=== PATIENT | male | born 1970 ===

== ENCOUNTER 2017-02-19 09:57 | Inpatient (IN) | payer MEDICAID, OTHER ==
[2017-02-19 10:04] VITALS: BMI 27.4
[2017-02-19] MEDS ORDERED: Sodium Chloride 0.9% 1,000 ML IV STA (10:31)
--- NOTE | 2017-02-19 11:00 | ED PDOC ---
HPI:Nausea, Vomiting, Diarrhea Time Seen by Provider: 02/19/17 10:02 Chief Complaint (Nursing): GI Problem Chief Complaint (Provider): Vomiting History Per: Patient History/Exam Limitations: no limitations Onset/Duration Of Symptoms: Hrs (since last night) Current Symptoms Are (Timing): Still Present Have you had recent travel within the past 21 days to any of the following countries: [place], [place], [place] or [place]?: No Context: Food Quality Of Discomfort: "Pain" Associated Symptoms: Diarrhea (mild). denies: Chest Pain Additional Complaint(s): 46 year old male presents to ED with complaints of vomiting since last night and has a past medical history of DM and HTN. States that ever since he had dinner he has been persistently vomiting. (+) abdominal pain, dizziness, mild diarrhea, and diffuse body aches. (-) chest pain or SOB. Patient also notes a rash present on his left lower extremity x1 month, itchy, not painful. No numbness, tingles. Weakness all over. PCP: EMILY Past Medical History Reviewed: Historical Data, Nursing Documentation, Vital Signs Vital Signs: Last Vital Signs Temp 98.2 F 02/19/17 10:07 Pulse 107 H 02/19/17 10:07 Resp 18 02/19/17 10:07 BP 145/91 H 02/19/17 10:07 Pulse Ox 97 02/19/17 10:07 - Medical History PMH: Diabetes, HTN Denies: Chronic Kidney Disease - Family History Family History: States: Diabetes, Hypertension - Living Arrangements Living Arrangements: With Family - Social History Current smoker - smoking cessation education provided: No Ex-Smoker (has not smoked in the last 12 months): No Alcohol: Occasional - Immunization History Hx Tetanus Toxoid Vaccination: Yes (8 months ago) - Home Medications Home Medications: Ambulatory Orders Medication Instructions Recorded Gabapentin [Neurontin] 300 mg PO BID 10/17/16 amLODIPine [Norvasc] 10 mg PO DAILY 10/17/16 GlipiZIDE [Glucotrol] 10 mg PO BID #60 tab 10/18/16 Lisinopril [Prinivil] 5 mg PO DAILY #30 tablet 10/18/16 Clotrimazole/Betamethasone 15 gm EXT DAILY #30 tube 02/21/17 [Lotrisone] GlipiZIDE SR [Glucotrol XL] 5 mg PO BRK #30 tab 02/21/17 Pioglitazone [Actos] 30 mg PO DAILY #30 tab 02/21/17 SITagliptin [Januvia] 100 mg PO DAILY #30 tab 02/21/17 metFORMIN ER [glucoPHAGE XR] 1,000 mg PO BID #60 ter 02/21/17 - Allergies Allergies/Adverse Reactions: Allergies Allergy/AdvReac Type Severity Reaction Status Date / Time No Known Allergies Allergy Verified 05/13/16 16:12 Review of Systems ROS Statement: Except As Marked, All Systems Reviewed And Found Negative Constitutional: Positive for: Other (diffuse body aches) Cardiovascular: Negative for: Chest Pain Respiratory: Negative for: Shortness of Breath Gastrointestinal: Positive for: Vomiting, Abdominal Pain, Diarrhea (mild) Skin: Positive for: Rash (Rash on left lower extremity) Neurological: Positive for: Dizziness Physical Exam - Reviewed Nursing Documentation Reviewed: Yes Vital Signs Reviewed: Yes - Physical Exam Appears: Positive for: Non-toxic, No Acute Distress Skin: Positive for: Normal Color, Warm, Dry, Rash (on left medial calf: 5 cm diameter area with dried skin, erythema, and mild blanching. No fluctuance, induration, or discharge) Eye Exam: Positive for: Normal appearance, EOMI, PERRL Neck: Positive for: Normal Cardiovascular/Chest: Positive for: Regular Rate, Rhythm Respiratory: Positive for: Normal Breath Sounds. Negative for: Respiratory Distress Gastrointestinal/Abdominal: Positive for: Soft, Tenderness (mild epigastric tenderness) Back: Positive for: Other (diffuse back tenderness) Extremity: Positive for: Normal ROM, Other (scabs on bilateral knees). Negative for: Calf Tenderness, Deformity Neurologic/Psych: Positive for: Alert, Oriented. Negative for: Motor/Sensory Deficits - Laboratory Results Result Diagrams: 02/20/17 06:30 02/20/17 06:30 - ECG O2 Sat by Pulse Oximetry: 97 (RA) Pulse Ox Interpretation: Normal Medical Decision Making Medical Decision Makin Initial impression: evaluation for vomiting and diarrhea Initial plan: * EKG * Labs * Lipase * Trop I * Bentyl 10mg PO * NS IV * Zofran Inj 4mg IV * Re-eval Scribe Attestation: Documented by Kristyn Thompson acting as a scribe for Randy Dooley MD. Scribe Attestation: All medical record entries made by the Scribe were at my direction and personally dictated by me. I have reviewed the chart and agree that the record accurately reflects my personal performance of the history, physical exam, medical decision making, and the department course for this patient. I have also personally directed, reviewed, and agree with the discharge instructions and disposition. Disposition - Clinical Impression Clinical Impression: Hyperglycemia, Dehydration - Patient ED Disposition Is Patient to be Admitted: Yes - Disposition Disposition Time: 19:30 Condition: STABLE - POA Present On Arrival: Poor Glycemic Control
[2017-02-19 11:28] LABS: BASO % 0.2 % (0.0-2.0); EOS % 0.1 % (0.0-4.0); HEMOGLOBIN 12.9 g/dL (12.0-18.0); LYMPH # 0.6 K/uL (1.0-4.3); LYMPH % 8.4 % (20.0-40.0); MEAN CELL VOLUME 88.1 fl (80.0-94.0); MEAN CORPUSCULAR HEMOGLOBIN 30.2 pg (27.0-31.0); MEAN CORPUSCULAR HGB CONC 34.3 g/dL (33.0-37.0); MEAN PLATELET VOLUME 8.8 fl (7.2-11.7); MONO # 0.4 K/uL (0.0-0.8); MONO % 6.2 % (0.0-10.0); NEUT # 5.7 K/uL (1.8-7.0); NEUT % 85.1 % (50.0-75.0); NRBC % 0.2 % (0.0-0.0); PLATELET COUNT 116 K/uL (130-400); RBC 4.27 Mil/uL (4.40-5.90); WHITE BLOOD COUNT 6.7 K/uL (4.8-10.8)
[2017-02-19 11:39] LABS: ALT/SGPT 119 U/L (21-72); AST/SGOT 140 U/L (17-59); BLOOD UREA NITROGEN 24 mg/dl (9-20); GFR AFRICAN-AMERICAN > 60; GFR NON-AFRICAN AMERICAN > 60; LIPASE 82 U/L (23-300)
[2017-02-19] MEDS ORDERED: Insulin Regular 100 units/ml ONE (12:47)
[2017-02-19] MEDS: Sodium Chloride 0.9% 1,000 ML IV SCH (23:45)
[2017-02-20] MEDS: Insulin Regular 100 units/ml SC SCH ×4 (06:29→23:00)
[2017-02-20 07:32] LABS: BANDS 2 % (0-2); LYMPHOCYTE 7 % (20-50); MONOCYTE 4 % (0-10); NEUTROPHIL 87 % (42-75); TOTAL CELLS COUNTED 100
[2017-02-20 07:33] LABS: PLATELET ESTIMATE SLIGHTLY DECREASED (NORMAL)
[2017-02-20 07:34] LABS: TEARDROP CELLS SLIGHT
[2017-02-20 08:26] LABS: MEAN CELL VOLUME 88.4 fl (80.0-94.0); MEAN CORPUSCULAR HEMOGLOBIN 30.1 pg (27.0-31.0); MEAN CORPUSCULAR HGB CONC 34.1 g/dL (33.0-37.0); RBC 3.98 Mil/uL (4.40-5.90); RED CELL DISTRIBUTION WIDTH 14.1 % (11.5-14.5); WHITE BLOOD COUNT 5.8 K/uL (4.8-10.8)
[2017-02-20 08:35] LABS: ALB/GLOB RATIO 0.9 (1.0-2.1); ALBUMIN 3.2 g/dL (3.5-5.0); ALT/SGPT 103 U/L (21-72); AST/SGOT 104 U/L (17-59); BLOOD UREA NITROGEN 15 mg/dl (9-20); CALCIUM 8.1 mg/dL (8.4-10.2); GFR AFRICAN-AMERICAN > 60; GFR NON-AFRICAN AMERICAN > 60
[2017-02-20] MEDS: Sodium Chloride 0.9% 1,000 ML IV SCH ×2 (08:57→17:22)
[2017-02-20] MEDS: GlipiZIDE 5 mg SR Tab PO SCH (11:12)
[2017-02-21] MEDS: Insulin Regular 100 units/ml SC SCH ×2 (06:39→12:24)
--- NOTE | 2017-02-21 06:57 | CARD ---
APPROVED REPORT EKG Measurement Heart [id number] <Conclusion> Normal sinus rhythm Normal ECG
[2017-02-21] MEDS: GlipiZIDE 5 mg SR Tab PO SCH (08:00)
--- NOTE | 2017-02-21 13:30 | CP.PCM.HP ---
History of Present Illness - History of Present Illness History of Present Illness: This is a 46 y/o male admitted for episodes f vomiting. Noted to have some dehydration He has a hx of uncontrolled DM 2. Past Patient History - Infectious Disease Hx of Infectious Diseases: None - Tetanus Immunizations Tetanus Immunization: Unknown - Past Medical History & Family History Past Medical History?: Yes - Past Social History Smoking Status: Never Smoked - CARDIAC Hx Cardiac Disorders: Yes Hx Hypertension: Yes - PULMONARY Hx Respiratory Disorders: No - NEUROLOGICAL Hx Neurological Disorder: Yes Other/Comment: Diabetic neuropathy BLE - HEENT Hx HEENT Problems: No - RENAL Hx Chronic Kidney Disease: No - ENDOCRINE/METABOLIC Hx Endocrine Disorders: Yes Hx Diabetes Mellitus Type 2: Yes - HEMATOLOGICAL/ONCOLOGICAL Hx Blood Disorders: No - INTEGUMENTARY Hx Dermatological Problems: No - MUSCULOSKELETAL/RHEUMATOLOGICAL Hx Musculoskeletal Disorders: No Hx Falls: Yes - GASTROINTESTINAL Hx Gastrointestinal Disorders: No - GENITOURINARY/GYNECOLOGICAL Hx Genitourinary Disorders: No - PSYCHIATRIC Hx Psychophysiologic Disorder: No Hx Substance Use: No - SURGICAL HISTORY Hx Surgeries: Yes Other/Comment: Right great toe amputation, left wrist surgery - ANESTHESIA Hx Anesthesia: Yes Hx Anesthesia Reactions: No Hx Malignant Hyperthermia: No Meds Allergies/Adverse Reactions: Allergies Allergy/AdvReac Type Severity Reaction Status Date / Time No Known Allergies Allergy Verified 05/13/16 16:12 Results - Vital Signs Recent Vital Signs: Last Vital Signs Temp 98 F 02/21/17 13:00 Pulse 87 02/21/17 13:00 Resp 18 02/21/17 13:00 BP 95/61 L 02/21/17 13:00 Pulse Ox 99 02/21/17 13:00 - Labs Result Diagrams: 02/20/17 06:30 02/20/17 06:30 Labs: Laboratory Results - last 24 hr 02/20/17 02/21/17 02/21/17 21:20 05:31 11:35 POC Glucose (mg/dL) 274 H 282 H 333 H
--- NOTE | 2017-02-21 13:31 | CP.PCM.DIS ---
Provider - Provider Date of Admission: 02/20/17 21:17 Attending physician: Uziel Be MD Hospital Course - Lab Results Lab Results: Most Recent Lab Values WBC 5.8 K/uL (4.8-10.8) 02/20/17 06:30 RBC 3.98 Mil/uL (4.40-5.90) L 02/20/17 06:30 Hgb 12.0 g/dL (12.0-18.0) 02/20/17 06:30 Hct 35.2 % (35.0-51.0) 02/20/17 06:30 MCV 88.4 fl (80.0-94.0) 02/20/17 06:30 MCH 30.1 pg (27.0-31.0) 02/20/17 06:30 MCHC 34.1 g/dL (33.0-37.0) 02/20/17 06:30 RDW 14.1 % (11.5-14.5) 02/20/17 06:30 Plt Count 111 K/uL (130-400) L 02/20/17 06:30 MPV 8.8 fl (7.2-11.7) 02/19/17 11:11 Neut % (Auto) 85.1 % (50.0-75.0) H 02/19/17 11:11 Lymph % (Auto) 8.4 % (20.0-40.0) L 02/19/17 11:11 Dodge % (Auto) 6.2 % (0.0-10.0) 02/19/17 11:11 Eos % (Auto) 0.1 % (0.0-4.0) 02/19/17 11:11 Baso % (Auto) 0.2 % (0.0-2.0) 02/19/17 11:11 Neut # 5.7 K/uL (1.8-7.0) 02/19/17 11:11 Lymph # 0.6 K/uL (1.0-4.3) L 02/19/17 11:11 Dodge # 0.4 K/uL (0.0-0.8) 02/19/17 11:11 Eos # 0.0 K/uL (0.0-0.7) 02/19/17 11:11 Baso # 0.0 K/uL (0.0-0.2) 02/19/17 11:11 Neutrophils % (Manual) 87 % (42-75) H 02/19/17 11:11 Band Neutrophils % 2 % (0-2) 02/19/17 11:11 Lymphocytes % (Manual) 7 % (20-50) L 02/19/17 11:11 Monocytes % (Manual) 4 % (0-10) 02/19/17 11:11 Platelet Estimate Slightly decreased (NORMAL) L 02/19/17 11:11 Tear Drop Cells Slight 02/19/17 11:11 Sodium 131 mmol/l (132-148) L 02/20/17 06:30 Potassium 4.1 MMOL/L (3.6-5.0) 02/20/17 06:30 Chloride 97 mmol/L (98-107) L 02/20/17 06:30 Carbon Dioxide 29 mmol/L (22-30) 02/20/17 06:30 Anion Gap 9 (10-20) L 02/20/17 06:30 BUN 15 mg/dl (9-20) 02/20/17 06:30 Creatinine 0.9 mg/dL (0.8-1.5) 02/20/17 06:30 Est GFR ( Amer) > 60 02/20/17 06:30 Est GFR (Non-Af Amer) > 60 02/20/17 06:30 POC Glucose (mg/dL) 333 mg/dL (65-110) H 02/21/17 11:35 Random Glucose 230 mg/dL (75-110) H 02/20/17 06:30 Calcium 8.1 mg/dL (8.4-10.2) L 02/20/17 06:30 Total Bilirubin 0.8 mg/dl (0.2-1.3) 02/20/17 06:30 AST 104 U/L (17-59) H D 02/20/17 06:30 ALT 103 U/L (21-72) H 02/20/17 06:30 Alkaline Phosphatase 119 U/L (38-126) 02/20/17 06:30 Troponin I < 0.0120 ng/mL (0.00-0.120) 02/19/17 11:11 Total Protein 6.9 G/DL (6.3-8.2) 02/20/17 06:30 Albumin 3.2 g/dL (3.5-5.0) L 02/20/17 06:30 Globulin 3.7 gm/dL (2.2-3.9) 02/20/17 06:30 Albumin/Globulin Ratio 0.9 (1.0-2.1) L 02/20/17 06:30 Lipase 82 U/L (23-300) 02/19/17 11:11 - Hospital Course Hospital Course: This is a 46 y/o male admitted or episodes of vomiting Has a hx of DM 2 uncontrolled and he was noted to be in dehydration. Discharge Plan - Follow Up Plan Condition: STABLE Disposition: HOME/ ROUTINE
[2017-02-21 15:47] VITALS: BP 97/63; PULSE 82; RESP 20; TEMP 97.9
--- NOTE | 2017-02-21 16:31 | US ---
PROCEDURE: Right lower extremity venous duplex Doppler. HISTORY: swelling COMPARISON: None available. TECHNIQUE: Common femoral, superficial femoral, popliteal and posterior tibial veins were evaluated. Flow was assessed with color Doppler, compressibility, assessment of phasic flow and augmentation response. FINDINGS: COMMON FEMORAL VEIN: Unremarkable. SUPERFICIAL FEMORAL VEIN: Unremarkable. POPLITEAL VEIN: Unremarkable. POSTERIOR TIBIAL VEIN: Unremarkable. OTHER FINDINGS: Note made of right sided inguinal lymph nodes IMPRESSION: No evidence of deep venous thrombosis in the right lower extremity.
--- NOTE | 2017-02-22 09:03 | CARD ---
APPROVED REPORT EXAM: Two-dimensional and M-mode echocardiogram with Doppler and color Doppler. Other Information Quality : GoodRhythm : NSR INDICATION Hypertension/HCVD 2D DIMENSIONS IVSd1.11 (0.7-1.1cm)LVDd4.25 (3.9-5.9cm) LVOT Diameter2.17 (1.8-2.4cm)PWd1.03 (0.7-1.1cm) IVSs1.33 (0.8-1.2cm)LVDs3.05 (2.5-4.0cm) FS (%) 28.4 %PWs1.60 (0.8-1.2cm) M-Mode DIMENSIONS Left Atrium (MM)3.53 (2.5-4.0cm)IVSd1.21 (0.7-1.1cm) Aortic Root3.59 (2.2-3.7cm)LVDd4.56 (4.0-5.6cm) Aortic Cusp Exc.2.09 (1.5-2.0cm)PWd1.00 (0.7-1.1cm) IVSs1.47 cmFS (%) 32 % LVDs3.12 (2.0-3.8cm)PWs1.50 cm Mitral Valve MV E Pvqlgaim34.2cm/sMV DECEL [id number] A Kwbivahl51.5cm/s MV DQC66qlY/A ratio0.6MVA (PHT)4.58cm2 TDI Lateral E' Peak V9.29cm/sMedial E' Peak V5.21cm/sE/Lateral E'3.8 E/Medial E'6.8 Pulmonary Valve PV Peak Qvkqzcgi81.0cm/s Tricuspid Valve TR Peak Ajodgqel533dx/sRAP FQPJGGFU00bcGtUV Peak Gr.22mmHg YUFZ59gzUq LEFT VENTRICLE The left ventricle is normal size. There is normal left ventricular wall thickness. The left ventricular function is normal. The left ventricular ejection fraction is within the normal range. The Ejection Fraction is 60-65%. There is normal LV segmental wall motion. The left ventricular diastolic function is normal. No left ventricle thrombus noted on this study. There is no mass noted in the left ventricle. RIGHT VENTRICLE The right ventricle is normal size. There is normal right ventricular wall thickness. The right ventricular systolic function is normal. ATRIA The left atrium size is normal. The right atrium size is normal. The interatrial septum is intact with no evidence for an atrial septal defect. AORTIC VALVE The aortic valve is normal in structure and function. No aortic regurgitation is present. There is no aortic valvular stenosis. There is no aortic valvular vegetation. MITRAL VALVE The mitral valve is normal in structure and function. There is no evidence of mitral valve prolapse. There is no mitral valve stenosis. There is no mitral valve regurgitation noted. TRICUSPID VALVE The tricuspid valve is normal in structure and function. There is no tricuspid valve regurgitation noted. There is no tricuspid valve prolapse or vegetation. There is no tricuspid valve stenosis. PULMONIC VALVE The pulmonary valve is normal in structure and function. There is no pulmonic valvular regurgitation. There is no pulmonic valvular stenosis. GREAT VESSELS The aortic root is normal in size. The IVC is normal in size and collapses >50% with inspiration. PERICARDIAL EFFUSION The pericardium appears normal. There is no pleural effusion. <Conclusion> The left ventricle is normal size. The left ventricular function is normal. The left ventricular ejection fraction is within the normal range. The Ejection Fraction is 60-65%.
--- NOTE | 2017-02-23 14:39 | PQF DM ---
Dr. Be pt has a history of diabetes and is admitted with elevated blood glucose on lab report. Please clarify any diagnosis that goes along with this finding. This form is a permanent part of the medical record Clarification of your documentation is requested to better reflect the severity of illness and intensity of treatment of your patient. Indicators present: [x] Documented diagnosis of Diabetes [] Documented condition [] A1C results [] Diabetic medications [] Elevated blood glucose [] Nutritional consults [] ADA diet [] Other: [] Location in the medical record that reflects the above clinical findings:[] Treatment Provided: PHYSICIAN'S RESPONSE Based on your medical judgment of the clinical indicators outlined above, are you treating this patient for a known or suspected: [] Diabetes Mellitus, Type I [] Controlled [] Uncontrolled [] Diabetes Mellitus, Type II [] Controlled [] Uncontrolled [] Diabetes, Steroid induced [] Controlled [] Uncontrolled [] Diabetic conditions/complications [] Other, please indicate [] [] If Unable to Determine, please check the box, sign and date. Present On Admission (POA) Indicator: [] Present at the time of admission [] Not present at the time of admission [] Clinically Undetermined In responding to this query, please exercise your independent professional judgment. The fact that a question is asked does not imply that any particular answer is desired or expected. Thank you for your clarification on this documentation. If you have any questions please call:[ ] * Thank you, [ ]Virgen Lamb transport [employer]
[2017-03-05 19:30] VITALS: O2SAT 97
== END 2017-02-21 18:00 | disposition home or self-care (01) | DRG 296 ==
LOC: H.ER 09:57 → H.ERHOLD 21:34 → H.TEL 21:51 → OBSVTOIN 02-20 21:17
PROVIDERS: ADMIT Family Medicine; ATTEND Family Medicine
DX: E86.0 Dehydration (principal); E11.40 Type 2 diabetes mellitus with diabetic neuropathy, unspecified; E11.65 Type 2 diabetes mellitus with hyperglycemia; I10 Essential (primary) hypertension; Z89.411 Acquired absence of right great toe

== ENCOUNTER 2017-02-24 17:25 | Emergency (ER) | payer OTHER ==
[2017-02-24 17:26] VITALS: BMI 27.4
[2017-02-24 17:45] VITALS: BP 125/68; PULSE 84; RESP 18; TEMP 98; O2SAT 98
--- NOTE | 2017-02-24 18:19 | ED PDOC ---
HPI: Eye Injury/Pain Time Seen by Provider: 02/24/17 18:17 Chief Complaint (Nursing): Eye Problem Chief Complaint (Provider): CHANGE IN VISION History Per: Patient (46 Y/O MALE HERE IN ED FOR EVALUATION OF PROGRESSIVELY WORSENING VISION. PATIENT WAS SEE BY DR. STACK OPTOMETRY AND NOTED TO HAVE RAPIDLY PROGRESSING DIABETIC RETINOPATHY IN LEFT EYE. 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 PATIENT DENIES ANY OTHER COMPLAINTS.) Past Medical History Reviewed: Historical Data, Nursing Documentation, Vital Signs Vital Signs: Last Vital Signs Temp 98 F 02/24/17 17:41 Pulse 84 02/24/17 17:41 Resp 18 02/24/17 17:41 BP 125/68 02/24/17 17:41 Pulse Ox 98 02/24/17 17:41 - Medical History PMH: Diabetes, HTN Denies: Chronic Kidney Disease - Family History Family History: States: Unknown Family Hx, Diabetes, Hypertension - Immunization History Hx Tetanus Toxoid Vaccination: Yes (8 months ago) - Home Medications Home Medications: Ambulatory Orders Medication Instructions Recorded Gabapentin [Neurontin] 300 mg PO BID 10/17/16 amLODIPine [Norvasc] 10 mg PO DAILY 10/17/16 GlipiZIDE [Glucotrol] 10 mg PO BID #60 tab 10/18/16 Lisinopril [Prinivil] 5 mg PO DAILY #30 tablet 10/18/16 Clotrimazole/Betamethasone 15 gm EXT DAILY #30 tube 02/21/17 [Lotrisone] GlipiZIDE SR [Glucotrol XL] 5 mg PO BRK #30 tab 02/21/17 Pioglitazone [Actos] 30 mg PO DAILY #30 tab 02/21/17 SITagliptin [Januvia] 100 mg PO DAILY #30 tab 02/21/17 metFORMIN ER [glucoPHAGE XR] 1,000 mg PO BID #60 ter 02/21/17 - Allergies Allergies/Adverse Reactions: Allergies Allergy/AdvReac Type Severity Reaction Status Date / Time No Known Allergies Allergy Verified 05/13/16 16:12 Review of Systems ROS Statement: Except As Marked, All Systems Reviewed And Found Negative Physical Exam - Reviewed Nursing Documentation Reviewed: Yes Vital Signs Reviewed: Yes (VISUAL LEFT 20/70; RIGHT 20/100) - Physical Exam Appears: Positive for: Well, Non-toxic, No Acute Distress Head Exam: Positive for: ATRAUMATIC, NORMAL INSPECTION, NORMOCEPHALIC Skin: Positive for: Normal Color, Warm, DRY Eye Exam: Positive for: Normal appearance, EOMI, PERRL, Other (DILATED PUPILS BILATERALLY (FROM PRIOR EYE EXAM TODAY)) ENT: Positive for: Normal ENT Inspection Neck: Positive for: Normal, Painless ROM Cardiovascular/Chest: Positive for: Regular Rate, Rhythm Respiratory: Positive for: CNT, Normal Breath Sounds Gastrointestinal/Abdominal: Positive for: Normal Exam, Bowel Sounds, Soft Back: Positive for: Normal Inspection Extremity: Positive for: Normal ROM, Other (SWELLING OF RIGHT LEG (OLD) NO OBVIOUS CELLULITIS. HYPERPIGMENTATION NOTED.) Neurologic/Psych: Positive for: Alert, Oriented - Laboratory Results Result Diagrams: 02/24/17 19:00 02/24/17 19:00 - ECG O2 Sat by Pulse Oximetry: 98 - Progress ED Course And Treament: D/W DR. STACK. WILL D/W DR. OWEN . ACCUCHECK 384 NS 2 LITERS WIDE OPEN D/W DR. OWEN. PATIENT TO SEE HIM IN OFFICE TOMORROW AT 10 AM TO INITIATE TREATMENT. OLD ED RECORDS REVIEWED US DUPLEX: NEG FOR DVT Disposition - Clinical Impression Clinical Impression: Diabetic retinopathy - Patient ED Disposition Is Patient to be Admitted: Transfer of Care - Disposition Referrals: Dennis Owen MD [Staff Provider] - [facility]ry [facility] [Outside] Disposition: Transfer of Care Disposition Time: 20:06 Condition: FAIR Additional Instructions: ENOCH Murguia LAS 10AM
[2017-02-24] MEDS ORDERED: Sodium Chloride 0.9% 2,000 ML IV STA (18:33)
[2017-02-24 19:00] LABS: VENOUS BLOOD GAS BASE EXCESS 2.8 mmol/L (0.0-2.0); VENOUS BLOOD GAS PCO2 57 mmHg (40-60); VENOUS BLOOD GAS PO2 24 mm/Hg (30-55); VENOUS BLOOD PH 7.33 (7.32-7.43)
[2017-02-24 19:15] LABS: BASO % 0.6 % (0.0-2.0); EOS # 0.1 K/uL (0.0-0.7); EOS % 1.7 % (0.0-4.0); HEMOGLOBIN 11.7 g/dL (12.0-18.0); LYMPH % 41.3 % (20.0-40.0); MEAN CELL VOLUME 88.2 fl (80.0-94.0); MEAN CORPUSCULAR HEMOGLOBIN 29.7 pg (27.0-31.0); MEAN CORPUSCULAR HGB CONC 33.7 g/dL (33.0-37.0); MEAN PLATELET VOLUME 8.2 fl (7.2-11.7); MONO # 0.6 K/uL (0.0-0.8); MONO % 11.7 % (0.0-10.0); NEUT # 2.2 K/uL (1.8-7.0); NEUT % 44.7 % (50.0-75.0); RBC 3.95 Mil/uL (4.40-5.90); WHITE BLOOD COUNT 4.9 K/uL (4.8-10.8)
[2017-02-24 19:19] LABS: ALBUMIN 3.9 g/dL (3.5-5.0); ALT/SGPT 126 U/L (21-72); AST/SGOT 117 U/L (17-59); BLOOD UREA NITROGEN 36 mg/dl (9-20); CALCIUM 10.6 mg/dL (8.4-10.2); GFR AFRICAN-AMERICAN > 60; GFR NON-AFRICAN AMERICAN > 60
[2017-02-24 19:36] LABS: SQUAMOUS EPITHIAL < 1 /hpf (0-5); URINE BILIRUBIN NEGATIVE (NEGATIVE); URINE BLOOD NEGATIVE (NEGATIVE); URINE CLARITY SLIGHTY-CLOUDY (Clear); URINE COLOR YELLOW (YELLOW); URINE GLUCOSE (UA) >=500 mg/dL (Normal); URINE LEUKOCYTE ESTERASE NEG Leu/uL (Negative); URINE NITRATE NEGATIVE (NEGATIVE); URINE PROTEIN 100 mg/dL (NEGATIVE); URINE UROBILINOGEN 0.2-1.0 mg/dL (0.2-1.0)
[2017-02-24] MEDS ORDERED: Insulin Regular 100 units/ml IVP ONE (19:42)
[2017-02-24] MEDS ORDERED: Insulin Regular 100 units/ml ONE (19:48)
--- NOTE | 2017-02-24 20:26 | ED PDOC ---
- Laboratory Results Result Diagrams: 02/24/17 19:00 02/24/17 19:00 - ECG Interpretation Of ECG: Normal sinus rhythm 80 beats per minute, no acute finding, reviewed by PA and ED attending O2 Sat by Pulse Oximetry: 98 Pulse Ox Interpretation: Normal Medical Decision Making Medical Decision Making: Case was signed out to ticket writer from [employer]. 8: 30 pm: K elevated at 5.4, not hemolyzed, repeat BMP ordered. EKG is normal. Glucose 384, insulin given, will re-check glucose. 9:30 pm: glucose is now 237. Patient is refusing repeat BMP. He states he wants to leave. I explained the necessity of tests but patient is still refusing. He was informed that he needs to sign out against medical advice. The risks and dangers of signing out against medical advice were discussed with patient and include but are no limited too, worsening of current condition, possible . Patient verbalized understanding of these risks and still wishes to leave AMA. Patient is competent and capable of making this decision. Patient has follow up tomorrow with Dr. Owen in his office and he was advised to keep this appt. Patient is aware he can RTED at any time if acutely worse. Disposition - Clinical Impression Clinical Impression: Diabetic retinopathy, Hyperglycemia, Hyperkalemia, Left against medical advice - POA Present On Arrival: None - Disposition Referrals: Podiatry Clinic [Outside] Dennis Owen MD [Staff Provider] - Disposition: AGAINST MEDICAL ADVICE Disposition Time: 21:32 Condition: FAIR Additional Instructions: ENOCH ORTEGA A LAS 10AM
--- NOTE | 2017-02-25 18:27 | CARD ---
APPROVED REPORT EKG Measurement Heart [id number] <Conclusion> Normal sinus rhythm Moderate voltage criteria for LVH, may be normal variant Borderline ECG
== END 2017-02-24 22:07 | disposition left against medical advice (07) ==
LOC: H.ER 17:25
DX: R73.9 Hyperglycemia, unspecified (principal); E11.319 Type 2 diabetes mellitus with unspecified diabetic retinopathy without macular edema

== ENCOUNTER 2018-05-01 12:45 | Inpatient (IN) | payer MEDICAID, OTHER ==
[2018-05-01 12:45] VITALS: BMI 27.4
[2018-05-01] MEDS ORDERED: Sodium Chloride 0.9% 1,000 ML IV STA (14:41)
--- NOTE | 2018-05-01 15:05 | RAD ---
Date of service: 05/01/2018 PROCEDURE: RIGHT FOOT RADIOGRAPHS HISTORY: infection, r/o osteo COMPARISON: NONE AVAILABLE. TECHNIQUE: Three views the right foot of been submitted for evaluation of osteomyelitis/infection. FINDINGS: No erosive bony changes are identified to suggest definite osteomyelitis. No definite periosteal reaction. PA seen to be status post subtotal great toe amputation with all cortical margins appearing well-preserved nevertheless. No emphysema soft tissue changes are identified with vascular calcifications identified within various plantar and dorsal foot soft tissues as well as anterior and posterior ankle soft tissues. IMPRESSION: No definitive osteomyelitis pattern. Subtotal amputation great toe noted. MRI is available for follow-up of potential osteomyelitis if clinically warranted.
[2018-05-01 15:17] LABS: BASO % 0.3 % (0.0-2.0); EOS # 0.1 K/uL (0.0-0.7); EOS % 1.3 % (0.0-4.0); HEMOGLOBIN 12.8 g/dL (12.0-18.0); LYMPH # 1.6 K/uL (1.0-4.3); LYMPH % 30.6 % (20.0-40.0); MEAN CELL VOLUME 90.7 fl (80.0-94.0); MEAN CORPUSCULAR HEMOGLOBIN 31.7 pg (27.0-31.0); MEAN PLATELET VOLUME 9.7 fl (7.2-11.7); MONO # 0.4 K/uL (0.0-0.8); MONO % 7.5 % (0.0-10.0); NEUT # 3.1 K/uL (1.8-7.0); NEUT % 60.3 % (50.0-75.0); NRBC % 0.1 % (0.0-0.0); RBC 4.04 Mil/uL (4.40-5.90); RED CELL DISTRIBUTION WIDTH 13.5 % (11.5-14.5); WHITE BLOOD COUNT 5.2 K/uL (4.8-10.8)
[2018-05-01 15:32] LABS: VENOUS BLOOD GAS BASE EXCESS 1.3 mmol/L (0.0-2.0); VENOUS BLOOD GAS PCO2 47 mmHg (40-60); VENOUS BLOOD GAS PO2 25 mm/Hg (30-55); VENOUS BLOOD PH 7.37 (7.32-7.43)
[2018-05-01] MEDS ORDERED: Insulin Regular 100 units/ml IV STA ×2 (15:39→17:26)
[2018-05-01 15:57] LABS: ALBUMIN 3.7 g/dL (3.5-5.0); ALT/SGPT 93 U/L (21-72); AST/SGOT 78 U/L (17-59); BLOOD UREA NITROGEN 23 mg/dl (9-20); CALCIUM 9.5 mg/dL (8.4-10.2); GFR NON-AFRICAN AMERICAN > 60
--- NOTE | 2018-05-01 16:03 | CP.PCM.CON ---
History of Present Illness - History of Present Illness History of Present Illness: Podiatry consult note for attending Dr. Escalona; 47 Y/O F patient with PMH of DMII w/ neuropathy, HTN, Right great toe amputation (04/2016), EtOH abuse seen and evaluated at the ED for pain and redness right 2nd toe. Patient states that he noticed the redness 3 or 4 days ago and wanted to wait and see if it went down. States that he was getting some pain in his right toe and foot and that the redness got worse so he decided to come into the ED. States that he is feeling a little dizzy but denies N/V/F/C/ SOB/CP. He has no other pedal complaints at this time. PMH: DMII w/ neuropathy and HTN. PSH: Right great toe amputation (04/2016). Allergies: NKDA. Social Hx: Denies smoking or illicit drug use. patient is EtOH abuse. Review of Systems - Review of Systems Review of Systems: s Per HPI Past Patient History - Infectious Disease Hx of Infectious Diseases: None - Tetanus Immunizations Tetanus Immunization: Unknown - Past Medical History & Family History Past Medical History?: Yes - Past Social History Smoking Status: Never Smoked - CARDIAC Hx Hypertension: Yes - PULMONARY Hx Respiratory Disorders: No - NEUROLOGICAL Hx Neurological Disorder: Yes Other/Comment: Diabetic neuropathy BLE - HEENT Hx HEENT Problems: No - RENAL Hx Chronic Kidney Disease: No - ENDOCRINE/METABOLIC Hx Endocrine Disorders: Yes Hx Diabetes Mellitus Type 2: Yes - HEMATOLOGICAL/ONCOLOGICAL Hx Blood Disorders: No - INTEGUMENTARY Hx Dermatological Problems: No - MUSCULOSKELETAL/RHEUMATOLOGICAL Hx Musculoskeletal Disorders: Yes Hx Falls: Yes - GASTROINTESTINAL Hx Gastrointestinal Disorders: No - GENITOURINARY/GYNECOLOGICAL Hx Genitourinary Disorders: No - PSYCHIATRIC Hx Psychophysiologic Disorder: No Hx Substance Use: No - SURGICAL HISTORY Hx Surgeries: Yes Other/Comment: Right great toe amputation, left wrist surgery - ANESTHESIA Hx Anesthesia: Yes Hx Anesthesia Reactions: No Hx Malignant Hyperthermia: No Meds Allergies/Adverse Reactions: Allergies Allergy/AdvReac Type Severity Reaction Status Date / Time No Known Allergies Allergy Verified 05/01/18 13:10 - Medications Medications: Current Medications Sodium Chloride (Sodium Chloride 0.9%) 1,000 mls @ 250 mls/hr IV .Q4H STA Stop: 05/01/18 18:40 Last Admin: 05/01/18 15:17 Dose: 250 mls/hr Physical Exam - Constitutional Appears: Well, Non-toxic, No Acute Distress - Head Exam Head Exam: ATRAUMATIC, NORMOCEPHALIC - Extremities Exam Additional comments: Right LE focused exam: Vasc: DP/PT are Palpable 2/4. Cap refill < 3 seconds to all digits except Left Hallux (s/p Amp). erythema noted extending throughout the right 2nd toe. Neuro: Protective sensation diminished. Gross sensation intact Derm: An ulcer noted at the tip of the right 2nd toe measuring 1cm x 1cmx 0.1 cm. the ulcer is covered by dry scab. No probe to bone, No undermining, no mal- odor noted. No tracking. MSK: Mild pain on palpation to Right 2nd toe. - Neurological Exam Neurological exam: Alert, Oriented x3 - Psychiatric Exam Psychiatric exam: Normal Affect, Normal Mood Results - Vital Signs Recent Vital Signs: Last Vital Signs Temp 98.7 F 05/01/18 13:12 Pulse 89 05/01/18 13:12 Resp 20 05/01/18 13:12 BP 157/88 H 05/01/18 13:12 Pulse Ox 99 05/01/18 13:12 - Labs Result Diagrams: 05/01/18 15:10 05/01/18 15:10 Labs: Laboratory Results - last 24 hr 05/01/18 05/01/18 05/01/18 15:09 15:10 15:10 WBC 5.2 RBC 4.04 L Hgb 12.8 Hct 36.6 MCV 90.7 D MCH 31.7 H MCHC 35.0 RDW 13.5 Plt Count 122 L D MPV 9.7 Neut % (Auto) 60.3 Lymph % (Auto) 30.6 [place] % (Auto) 7.5 Eos % (Auto) 1.3 Baso % (Auto) 0.3 Neut # (Auto) 3.1 Lymph # (Auto) 1.6 [place] # (Auto) 0.4 Eos # (Auto) 0.1 Baso # (Auto) 0.0 pO2 VBG pH VBG pCO2 VBG HCO3 VBG Total CO2 VBG O2 Sat (Calc) VBG Base Excess VBG Potassium Glucose Lactate FiO2 Crit Value Called To Crit Value Called By Crit Value Read Back Blood Gas Notified Time Sodium 129 L Potassium 5.1 H Chloride 95 L Carbon Dioxide 27 Anion Gap 12 BUN 23 H Creatinine 0.7 L Est GFR ( Amer) > 60 Est GFR (Non-Af Amer) > 60 POC Glucose (mg/dL) 365 H Random Glucose 423 H* Calcium 9.5 Total Bilirubin 0.9 AST 78 H ALT 93 H D Alkaline Phosphatase 213 H Total Protein 7.6 Albumin 3.7 Globulin 3.8 Albumin/Globulin Ratio 1.0 Venous Blood Potassium 05/01/18 15:20 WBC RBC Hgb Hct MCV MCH MCHC RDW Plt Count MPV Neut % (Auto) Lymph % (Auto) [place] % (Auto) Eos % (Auto) Baso % (Auto) Neut # (Auto) Lymph # (Auto) [place] # (Auto) Eos # (Auto) Baso # (Auto) pO2 25 L VBG pH 7.37 VBG pCO2 47 VBG HCO3 24.5 VBG Total CO2 28.6 H VBG O2 Sat (Calc) 55.2 VBG Base Excess 1.3 VBG Potassium 4.7 Glucose 418 H* D Lactate 1.6 FiO2 21.0 Crit Value Called To Jess faria Crit Value Called By 23 Crit Value Read Back Y Blood Gas Notified Time 1530 Sodium 127.0 L Potassium Chloride 93.0 L Carbon Dioxide Anion Gap BUN Creatinine Est GFR ( Amer) Est GFR (Non-Af Amer) POC Glucose (mg/dL) Random Glucose Calcium Total Bilirubin AST ALT Alkaline Phosphatase Total Protein Albumin Globulin Albumin/Globulin Ratio Venous Blood Potassium 4.7 Assessment & Plan - Assessment and Plan (Free Text) Assessment: 47 y/o patient seen and examined in the ED for right 2nd toe ulcer and cellulitis vs osteomyelitis Plan: Patient seen and evaluated Plan discussed with attending Dr. Escalona X-ray reviewed: no evidence of osteomyelitis but follow up MRI encouraged to rule out X-ray results discussed with the patient. Chart, Labs and vitals reviewed; Afebrile, No leukocytosis, glucose: 418 mg/dL Patient will be admitted by the primary team Dressed ulcer with bacitracin and DSD ESR and CRP ordered for patient MRI ordered for patient Patient started on antibiotic per primary care team Thank you for the consult Podiatry will follow patient while in house - Date & Time Date: 05/01/18 Time: 16:04
--- NOTE | 2018-05-01 17:27 | ED PDOC ---
Lower Extremity Pain/Injury Time Seen by Provider: 05/01/18 14:12 Chief Complaint (Nursing): Lower Extremity Problem/Injury Chief Complaint (Provider): Right second toe redness and pain x 3 days History Per: Patient History/Exam Limitations: no limitations Onset/Duration Of Symptoms: Days Current Symptoms Are (Timing): Still Present Additional Complaint(s): 47 yo male with history of DM and right great toe amputation presents for evaluation of right 2nd digit pain, redness and swelling x 3 days. Pt denies fever/chills. PT states his sugars have not been good. Denies N/V/D. Past Medical History Vital Signs: Last Vital Signs Temp 98.7 F 05/01/18 13:12 Pulse 89 05/01/18 13:12 Resp 20 05/01/18 13:12 BP 157/88 H 05/01/18 13:12 Pulse Ox 99 05/01/18 13:12 - Medical History PMH: Diabetes, HTN Denies: Chronic Kidney Disease - Family History Family History: States: Unknown Family Hx, Diabetes, Hypertension - Immunization History Hx Tetanus Toxoid Vaccination: Yes (8 months ago) - Home Medications Home Medications: Ambulatory Orders Medication Instructions Recorded Gabapentin [Neurontin] 300 mg PO BID 10/17/16 amLODIPine [Norvasc] 10 mg PO DAILY 10/17/16 GlipiZIDE [Glucotrol] 10 mg PO BID #60 tab 10/18/16 Lisinopril [Prinivil] 5 mg PO DAILY #30 tablet 10/18/16 Clotrimazole/Betamethasone 15 gm EXT DAILY #30 tube 02/21/17 [Lotrisone] GlipiZIDE SR [Glucotrol XL] 5 mg PO BRK #30 tab 02/21/17 Pioglitazone [Actos] 30 mg PO DAILY #30 tab 02/21/17 SITagliptin [Januvia] 100 mg PO DAILY #30 tab 02/21/17 metFORMIN ER [glucoPHAGE XR] 1,000 mg PO BID #60 ter 02/21/17 - Allergies Allergies/Adverse Reactions: Allergies Allergy/AdvReac Type Severity Reaction Status Date / Time No Known Allergies Allergy Verified 05/01/18 13:10 - Laboratory Results Result Diagrams: 05/01/18 15:10 05/01/18 15:10 - ECG O2 Sat by Pulse Oximetry: 99 Medical Decision Making Medical Decision Makin - Pts sugar 322. Pt was fed in ER. Disposition - Disposition Forms: [facility] [employer] (Sinhala)
[2018-05-01] MEDS ORDERED: Gadodiamide 287 MG/ML VIAL (15ML) IV ONE (18:11)
[2018-05-01 18:18] LABS: URINE BACTERIA RARE (<OCC); URINE BILIRUBIN NEGATIVE (NEGATIVE); URINE BLOOD SMALL (NEGATIVE); URINE CLARITY SLIGHTY-CLOUDY (Clear); URINE COLOR YELLOW (YELLOW); URINE GLUCOSE (UA) >=500 mg/dL (Normal); URINE LEUKOCYTE ESTERASE NEG Leu/uL (Negative); URINE PROTEIN >=500 mg/dL (NEGATIVE); URINE UROBILINOGEN 0.2-1.0 mg/dL (0.2-1.0)
[2018-05-01] MEDS ORDERED: Piperacillin/Tazobact 3.375 GM in Sodium Chloride 0.9% 100 ML IV ONE (20:14)
--- NOTE | 2018-05-01 21:03 | CP.PCM.HP ---
History of Present Illness - History of Present Illness History of Present Illness: 47 yr old M presents to ED with complaint of right foot-2nd digit ulcer with redness, swelling and pain x 3 days. PMHx includes uncontrolled IDDM type 2 and HTN. Patient reports he thinks there was something in his shoe that injured his toe. Denies fevers, chills, nausea, vomiting, diarrhea, palpitations or weakness. Denies difficulty ambulating. Reports bilateral foot ulcers in the past requiring right great toe amputation. Patient reports noncompliance with medications or diabetic diet. PMD: [facility] (Dr. Wiggins)-[phone] Specialist: Dr. Escalona-podiatry PMHx: uncontrolled IDDM type 2, HTN SurgHx: right great toe amputation FMHx: mother at 78-leukemia and NIDDM; father is 78-IDDM SocHx: former smoker (20 pack years-quit in 2000); occasional Etoh use; occasional Marijuana use (last 1 month ago) Medications: Amlodipine 5mg PO QD, Lisinopril 5mg PO QD, Metformin 1,000mg PO BID, Tuojeo Solostar (insulin glargine pen): 12 units SC QAM on tue/tue/tue/ tuesday, [place] (oncovite) 1 tab PO QD; Allergies: NKDA Code Status: Full code Emergency contact: Priscilla Silva () [phone] ED course: 157/88 mmHg, HR 89 bpm; Temp 98.7F, Resp rate 20; SpO2 99% on room air -EKG: normal sinus rhythm at 86 bpm, no significant ST-T changes -Right foot xray: No definitive osteomyelitis pattern. MRI is available for f/u of potential osteomyelitis. -Right foot MRI: Reactive marrow edema versus developing osteomyelitis distal phalanx second toe. -CBC: plts 122, rest wnl -ESR 108, CRP 21.60 -CMP: Na 129, K+ 5.1, Cl 95, HCO3 27, AG 12, BUN 23/Cr 0.7, est GFR > 60, AST 78 , ALT 93, Alk phos 213 -VBG: Na 127, Cl 93, glucose 418 -UA: negative -ED treatment: NS 1L IV at 250 mls/hr, Insulin 6 units SC once, Insulin 4 units SC once, Lisinopril 5mg PO once, Zosyn 3.375gm IV once Present on Admission - Present on Admission Any Indicators Present on Admission: Yes History of DVT/PE: No History of Uncontrolled Diabetes: Yes Urinary Catheter: No Decubitus Ulcer Present: No History Surgical Site Infection Following: None Review of Systems - Constitutional Constitutional: absent: Chills, Weakness - EENT Eyes: absent: Blurred Vision Nose/Mouth/Throat: absent: Nasal Congestion - Cardiovascular Cardiovascular: absent: Chest Pain, Dyspnea - Respiratory Respiratory: absent: Cough, Hemoptysis - Gastrointestinal Gastrointestinal: absent: Abdominal Pain, Diarrhea, Nausea, Vomiting - Genitourinary Genitourinary: absent: Difficulty Urinating, Dysuria - Musculoskeletal Musculoskeletal: Arthralgias - Integumentary Integumentary: Swelling (right foot-2nd digit), Wounds (right foot-2nd digit) - Neurological Neurological: absent: Confusion, Weakness - Psychiatric Psychiatric: absent: Anxiety - Endocrine Endocrine: absent: Polydipsia, Polyphagia, Polyuria - Hematologic/Lymphatic Hematologic: absent: Easy Bleeding, Easy Bruising Past Patient History - Infectious Disease Hx of Infectious Diseases: None - Tetanus Immunizations Tetanus Immunization: Unknown - Past Medical History & Family History Past Medical History?: Yes - Past Social History Smoking Status: Never Smoked - CARDIAC Hx Hypertension: Yes - PULMONARY Hx Respiratory Disorders: No - NEUROLOGICAL Hx Neurological Disorder: Yes Other/Comment: Diabetic neuropathy BLE - HEENT Hx HEENT Problems: No - RENAL Hx Chronic Kidney Disease: No - ENDOCRINE/METABOLIC Hx Endocrine Disorders: Yes Hx Diabetes Mellitus Type 2: Yes - HEMATOLOGICAL/ONCOLOGICAL Hx Blood Disorders: No - INTEGUMENTARY Hx Dermatological Problems: No - MUSCULOSKELETAL/RHEUMATOLOGICAL Hx Musculoskeletal Disorders: Yes Hx Falls: Yes - GASTROINTESTINAL Hx Gastrointestinal Disorders: No - GENITOURINARY/GYNECOLOGICAL Hx Genitourinary Disorders: No - PSYCHIATRIC Hx Psychophysiologic Disorder: No Hx Substance Use: No - SURGICAL HISTORY Hx Surgeries: Yes Other/Comment: Right great toe amputation, left wrist surgery - ANESTHESIA Hx Anesthesia: Yes Hx Anesthesia Reactions: No Hx Malignant Hyperthermia: No Meds Home Medications: Home Medication List Medication Instructions Recorded Confirmed Type Multivitamin,Therapeutic [Oncovite] 1 tab PO DAILY 30 Days tab 05/01/18 Rx amLODIPine [Norvasc] 5 mg PO DAILY 30 Days tab 05/01/18 Rx Allergies/Adverse Reactions: Allergies Allergy/AdvReac Type Severity Reaction Status Date / Time No Known Allergies Allergy Verified 05/01/18 13:10 Physical Exam - Constitutional Appears: No Acute Distress - Head Exam Head Exam: ATRAUMATIC, NORMOCEPHALIC - Eye Exam Eye Exam: EOMI Pupil Exam: Irregular (left pupil deformed-hx laser sx; right pupil reactive to light) - ENT Exam ENT Exam: Mucous Membranes Moist - Neck Exam Neck exam: Positive for: Full Rom. Negative for: Lymphadenopathy - Respiratory Exam Respiratory Exam: Clear to Auscultation Bilateral, NORMAL BREATHING PATTERN - Cardiovascular Exam Cardiovascular Exam: REGULAR RHYTHM, +S1, +S2 - GI/Abdominal Exam GI & Abdominal Exam: Normal Bowel Sounds, Soft (obese), Tenderness. absent: Distended, Guarding, Rigid - Extremities Exam Extremities exam: Positive for: full ROM, pedal pulses present. Negative for: normal inspection (ulcer at tip of right 2nd toe 1x 1 cm: dry scab over ulcer: no discharge), pedal edema - Back Exam Back exam: FULL ROM - Neurological Exam Neurological exam: Alert, CN II-XII Intact, Oriented x3 - Psychiatric Exam Psychiatric exam: Normal Affect, Normal Mood - Skin Skin Exam: Dry, Normal Color, Warm Results - Vital Signs Recent Vital Signs: Last Vital Signs Temp 98.7 F 05/01/18 13:12 Pulse 78 05/01/18 19:35 Resp 20 05/01/18 13:12 BP 134/81 05/01/18 19:35 Pulse Ox 99 05/01/18 18:59 - Labs Result Diagrams: 05/01/18 15:10 05/01/18 15:10 Labs: Laboratory Results - last 24 hr 05/01/18 05/01/18 05/01/18 15:09 15:10 15:10 WBC 5.2 RBC 4.04 L Hgb 12.8 Hct 36.6 MCV 90.7 D MCH 31.7 H MCHC 35.0 RDW 13.5 Plt Count 122 L D MPV 9.7 Neut % (Auto) 60.3 Lymph % (Auto) 30.6 [place] % (Auto) 7.5 Eos % (Auto) 1.3 Baso % (Auto) 0.3 Neut # (Auto) 3.1 Lymph # (Auto) 1.6 [place] # (Auto) 0.4 Eos # (Auto) 0.1 Baso # (Auto) 0.0 ESR pO2 VBG pH VBG pCO2 VBG HCO3 VBG Total CO2 VBG O2 Sat (Calc) VBG Base Excess VBG Potassium Glucose Lactate FiO2 Crit Value Called To Crit Value Called By Crit Value Read Back Blood Gas Notified Time Sodium 129 L Potassium 5.1 H Chloride 95 L Carbon Dioxide 27 Anion Gap 12 BUN 23 H Creatinine 0.7 L Est GFR ( Amer) > 60 Est GFR (Non-Af Amer) > 60 POC Glucose (mg/dL) 365 H Random Glucose 423 H* Calcium 9.5 Total Bilirubin 0.9 AST 78 H ALT 93 H D Alkaline Phosphatase 213 H C-Reactive Protein Total Protein 7.6 Albumin 3.7 Globulin 3.8 Albumin/Globulin Ratio 1.0 Venous Blood Potassium Urine Color Urine Clarity Urine pH Ur Specific [place] Urine Protein Urine Glucose (UA) Urine Ketones Urine Blood Urine Nitrate Urine Bilirubin Urine Urobilinogen Ur Leukocyte Esterase Urine RBC (Auto) Urine Microscopic WBC Urine Bacteria 05/01/18 05/01/18 05/01/18 15:20 17:08 17:20 WBC RBC Hgb Hct MCV MCH MCHC RDW Plt Count MPV Neut % (Auto) Lymph % (Auto) [place] % (Auto) Eos % (Auto) Baso % (Auto) Neut # (Auto) Lymph # (Auto) [place] # (Auto) Eos # (Auto) Baso # (Auto) ESR pO2 25 L VBG pH 7.37 VBG pCO2 47 VBG HCO3 24.5 VBG Total CO2 28.6 H VBG O2 Sat (Calc) 55.2 VBG Base Excess 1.3 VBG Potassium 4.7 Glucose 418 H* D Lactate 1.6 FiO2 21.0 Crit Value Called To Jess faria Crit Value Called By 23 Crit Value Read Back Y Blood Gas Notified Time 1530 Sodium 127.0 L Potassium Chloride 93.0 L Carbon Dioxide Anion Gap BUN Creatinine Est GFR ( Amer) Est GFR (Non-Af Amer) POC Glucose (mg/dL) 310 H 322 H Random Glucose Calcium Total Bilirubin AST ALT Alkaline Phosphatase C-Reactive Protein Total Protein Albumin Globulin Albumin/Globulin Ratio Venous Blood Potassium 4.7 Urine Color Urine Clarity Urine pH Ur Specific [place] Urine Protein Urine Glucose (UA) Urine Ketones Urine Blood Urine Nitrate Urine Bilirubin Urine Urobilinogen Ur Leukocyte Esterase Urine RBC (Auto) Urine Microscopic WBC Urine Bacteria 05/01/18 05/01/18 05/01/18 17:50 17:50 17:50 WBC RBC Hgb Hct MCV MCH MCHC RDW Plt Count MPV Neut % (Auto) Lymph % (Auto) [place] % (Auto) Eos % (Auto) Baso % (Auto) Neut # (Auto) Lymph # (Auto) [place] # (Auto) Eos # (Auto) Baso # (Auto) ESR 108 H pO2 VBG pH VBG pCO2 VBG HCO3 VBG Total CO2 VBG O2 Sat (Calc) VBG Base Excess VBG Potassium Glucose Lactate FiO2 Crit Value Called To Crit Value Called By Crit Value Read Back Blood Gas Notified Time Sodium Potassium Chloride Carbon Dioxide Anion Gap BUN Creatinine Est GFR ( Amer) Est GFR (Non-Af Amer) POC Glucose (mg/dL) Random Glucose Calcium Total Bilirubin AST ALT Alkaline Phosphatase C-Reactive Protein 21.60 H Total Protein Albumin Globulin Albumin/Globulin Ratio Venous Blood Potassium Urine Color Yellow Urine Clarity Slighty-cloudy Urine pH 6.0 Ur Specific [place] 1.027 Urine Protein >=500 Urine Glucose (UA) >=500 Urine Ketones Negative Urine Blood Small Urine Nitrate Negative Urine Bilirubin Negative Urine Urobilinogen 0.2-1.0 Ur Leukocyte Esterase Neg Urine RBC (Auto) 2 Urine Microscopic WBC 2 Urine Bacteria Rare 05/01/18 19:52 WBC RBC Hgb Hct MCV MCH MCHC RDW Plt Count MPV Neut % (Auto) Lymph % (Auto) [place] % (Auto) Eos % (Auto) Baso % (Auto) Neut # (Auto) Lymph # (Auto) [place] # (Auto) Eos # (Auto) Baso # (Auto) ESR pO2 VBG pH VBG pCO2 VBG HCO3 VBG Total CO2 VBG O2 Sat (Calc) VBG Base Excess VBG Potassium Glucose Lactate FiO2 Crit Value Called To Crit Value Called By Crit Value Read Back Blood Gas Notified Time Sodium Potassium Chloride Carbon Dioxide Anion Gap BUN Creatinine Est GFR ( Amer) Est GFR (Non-Af Amer) POC Glucose (mg/dL) 362 H Random Glucose Calcium Total Bilirubin AST ALT Alkaline Phosphatase C-Reactive Protein Total Protein Albumin Globulin Albumin/Globulin Ratio Venous Blood Potassium Urine Color Urine Clarity Urine pH Ur Specific [place] Urine Protein Urine Glucose (UA) Urine Ketones Urine Blood Urine Nitrate Urine Bilirubin Urine Urobilinogen Ur Leukocyte Esterase Urine RBC (Auto) Urine Microscopic WBC Urine Bacteria Assessment & Plan - Assessment and Plan (Free Text) Assessment: 47 yr old M admitted for right foot-2nd digit cellulitis vs osteomyelitis and hyperglycemia with PMHx including uncontrolled IDDM type 2 and HTN. Right foot-2nd digit cellulitis vs osteomyelitis -acute, ESR 108, CRP 21.60 -Right foot xray: No definitive osteomyelitis pattern. MRI is available for f/u of potential osteomyelitis -Right foot MRI: Reactive marrow edema versus developing osteomyelitis distal phalanx second toe [facility] -Podiatry consult appreciated: Dr. Escalona -f/u blood culture -PT/OT Hyponatremia -acute, likely secondary to hyperglycemia -serum Na 129 mmol/l; corrected Na for hyperglycemia: 134 mmol/l -manage hyperglycemia -f/u repeat next day CMP Hyperglycemia/IDDM type 2 -chronic, uncontrolled (last HbA1c 10.8 on 09/01/16) -random glucose 423 mg/dL -hold metformin and home dose of insulin glargine -NPH coverage scale -low carbohydrate/heart healthy/low sodium diet -hypoglycemia protocol in place Hypertension -chronic, controlled -continue home medications (Amlodipine 5mg PO QD, Lisinopril 5mg PO QD) -monitor BP DVT prophylaxis -Heparin 5,000 units SC Q8 - Date & Time Date: 05/01/18 Time: 21:03
[2018-05-01] MEDS ORDERED: Glucagon Recombinant 1 mg Inj IM PRN (22:02)
[2018-05-01] MEDS ORDERED: Dextrose 50% SYRINGE Inj (50 ml) IV PRN (22:02)
[2018-05-01] MEDS ORDERED: Piperacillin/Tazobact 3.375 gm Inj IVPB ONE (22:44)
[2018-05-01] MEDS: Insulin Regular 100 units/ml SC SCH (22:50)
[2018-05-02] MEDS ORDERED: Glucagon Recombinant 1 mg Inj IM PRN (02:13)
[2018-05-02] MEDS ORDERED: Dextrose 50% SYRINGE Inj (50 ml) IV PRN (02:13)
[2018-05-02] MEDS ORDERED: Piperacillin/Tazobact 3.375 GM in Sodium Chloride 0.9% 100 ML IVPB SCH (06:00)
[2018-05-02] MEDS: Sodium Chloride 0.9% 1,000 ML IV SCH ×3 (06:09→21:00)
--- NOTE | 2018-05-02 06:55 | CP.PCM.PN ---
Subjective - Date & Time of Evaluation Date of Evaluation: 05/02/18 Time of Evaluation: 06:53 - Subjective Subjective: Podiatry progress note for attending Dr. Escalona; 47 Y/O F patient seen and evaluated at bedside for pain and redness right 2nd toe. Patient is AAO x3 and in NAD. Patient states the redness in his foot has stayed about the same. Denies any acute overnight events. Patient denies f/n/v/ sob/CP. He has no other pedal complaints at this time. Objective - Vital Signs/Intake and Output Vital Signs (last 24 hours): Temp Pulse Resp BP Pulse Ox 97.8 F 88 20 157/93 H 97 05/01/18 23:46 05/01/18 23:51 05/01/18 23:51 05/01/18 23:46 05/01/18 23:51 - Medications Medications: Current Medications Acetaminophen (Tylenol 325mg Tab) 650 mg PO Q6 PRN PRN Reason: Pain, moderate (4-7) Amlodipine Besylate (Norvasc) 5 mg PO DAILY [facility] Dextrose (Dextrose 50% Inj) 0 ml IV STAT PRN; Protocol PRN Reason: Hypoglycemia Protocol Dextrose (Glutose 15) 0 gm PO ONCE PRN; Protocol PRN Reason: Hypoglycemia Protocol Dextrose (Dextrose 50% Inj) 0 ml IV STAT PRN; Protocol PRN Reason: Hypoglycemia Protocol Dextrose (Glutose 15) 0 gm PO ONCE PRN; Protocol PRN Reason: Hypoglycemia Protocol Glucagon (Glucagen Diagnostic Kit) 0 mg IM STAT PRN; Protocol PRN Reason: Hypoglycemia Protocol Glucagon (Glucagen Diagnostic Kit) 0 mg IM STAT PRN; Protocol PRN Reason: Hypoglycemia Protocol Heparin Sodium (Porcine) (Heparin) 5,000 units SC Q8 [facility] PRN Reason: Protocol Last Admin: 05/02/18 02:00 Dose: 5,000 units Piperacillin Sod/Tazobactam (Sod 3.375 gm/ Sodium Chloride) 100 mls @ 100 mls/ hr IVPB Q8 [facility] PRN Reason: Protocol Last Admin: 05/02/18 05:07 Dose: 100 mls/hr Sodium Chloride (Sodium Chloride 0.9%) 1,000 mls @ 125 mls/hr IV .Q8H [facility] Stop: 05/03/18 03:52 Last Admin: 05/02/18 06:09 Dose: 125 mls/hr Insulin Human Regular (Humulin R) 0 units SC ACHS [facility] PRN Reason: Protocol Last Admin: 05/01/18 22:50 Dose: Not Given Lisinopril (Zestril) 5 mg PO DAILY [facility] Multivitamins/Minerals (Therapeutic-M Tab) 1 tab PO DAILY [facility] - Labs Labs: 05/01/18 15:10 05/01/18 15:10 - Constitutional Appears: Well, Non-toxic, No Acute Distress - Head Exam Head Exam: ATRAUMATIC, NORMOCEPHALIC - Extremities Exam Additional comments: Right LE focused exam: Vasc: DP/PT are Palpable 2/4. Cap refill < 3 seconds to all digits except Hallux (s/p Amp). erythema noted extending throughout the right 2nd toe. Neuro: Protective sensation diminished. Gross sensation intact Derm: An ulcer noted at the tip of the right 2nd toe measuring 1cm x 1cmx 0.1 cm. the ulcer is covered by dry scab. No probe to bone, No undermining, no mal- odor noted. No tracking. MSK: Mild pain on palpation to Right 2nd toe. - Neurological Exam Neurological Exam: Alert, Awake, Oriented x3 - Psychiatric Exam Psychiatric exam: Normal Affect, Normal Mood - Skin Skin Exam: Normal Color Assessment and Plan - Assessment and Plan (Free Text) Assessment: 47 y/o patient seen and examined at bedside for right 2nd toe ulcer and cellulitis vs osteomyelitis Plan: Patient seen and evaluated Plan discussed with attending Dr. Escalona X-ray reviewed: no evidence of osteomyelitis but follow up MRI encouraged to rule out Chart, Labs and vitals reviewed; Afebrile, No leukocytosis, glucose: 418 mg/dL Dressed wound with bacitracin and DSD ESR: 108 CRP 21.6 MRI of the right foot: signal abnormality seen within the second distal phalanx with decreased T1 signal and increased STIR signal concerning for acute osteomyelitis, some adjacent minimal reactive edema in the second middle phalanx , nonspecific Patient to continue IV abx. Thank you for the consult Podiatry will follow patient while in house
[2018-05-02] MEDS ORDERED: Insulin Detemir 100 Units/ml Inj SC STA (07:20)
--- NOTE | 2018-05-02 07:32 | CARD ---
APPROVED REPORT Date of service: 05/01/2018 EKG Measurement Heart [id number] <Conclusion> Normal sinus rhythm Minimal voltage criteria for LVH, may be normal variant Borderline ECG
--- NOTE | 2018-05-02 07:49 | CP.PCM.PN ---
<Sybil Diaz - Last Filed: 05/02/18 10:47> Subjective - Date & Time of Evaluation Date of Evaluation: 05/02/18 Time of Evaluation: 09:25 - Subjective Subjective: Patient was seen, and examined at bedside this morning. Patient denies pain at this evaluation. Denies chest pain, SOB, chills, abdominal pain, diarrheas, urinary symptoms. Reports pain/cramps in both calves/legs when walking few blocks, and resolves after he stops, and rest for a short period of time. Afebrile. No events reported overnight. Objective - Vital Signs/Intake and Output Vital Signs (last 24 hours): Temp Pulse Resp BP Pulse Ox 97.8 F 88 20 157/93 H 97 05/01/18 23:46 05/01/18 23:51 05/01/18 23:51 05/01/18 23:46 05/01/18 23:51 - Medications Medications: Current Medications Acetaminophen (Tylenol 325mg Tab) 650 mg PO Q6 PRN PRN Reason: Pain, moderate (4-7) Amlodipine Besylate (Norvasc) 5 mg PO DAILY [facility] Dextrose (Dextrose 50% Inj) 0 ml IV STAT PRN; Protocol PRN Reason: Hypoglycemia Protocol Dextrose (Glutose 15) 0 gm PO ONCE PRN; Protocol PRN Reason: Hypoglycemia Protocol Dextrose (Dextrose 50% Inj) 0 ml IV STAT PRN; Protocol PRN Reason: Hypoglycemia Protocol Dextrose (Glutose 15) 0 gm PO ONCE PRN; Protocol PRN Reason: Hypoglycemia Protocol Glucagon (Glucagen Diagnostic Kit) 0 mg IM STAT PRN; Protocol PRN Reason: Hypoglycemia Protocol Glucagon (Glucagen Diagnostic Kit) 0 mg IM STAT PRN; Protocol PRN Reason: Hypoglycemia Protocol Heparin Sodium (Porcine) (Heparin) 5,000 units SC Q8 [facility] PRN Reason: Protocol Last Admin: 05/02/18 02:00 Dose: 5,000 units Piperacillin Sod/Tazobactam (Sod 3.375 gm/ Sodium Chloride) 100 mls @ 100 mls/ hr IVPB Q8 [facility] PRN Reason: Protocol Last Admin: 05/02/18 05:07 Dose: 100 mls/hr Sodium Chloride (Sodium Chloride 0.9%) 1,000 mls @ 125 mls/hr IV .Q8H [facility] Stop: 05/03/18 03:52 Last Admin: 05/02/18 06:09 Dose: 125 mls/hr Vancomycin HCl 1 gm/ Sodium (Chloride) 250 mls @ 166.667 mls/hr IVPB Q12 [facility] PRN Reason: Protocol Insulin Human Regular (Humulin R) 0 units SC ACHS [facility] PRN Reason: Protocol Last Admin: 05/01/18 22:50 Dose: Not Given Lisinopril (Zestril) 5 mg PO DAILY [facility] Multivitamins/Minerals (Therapeutic-M Tab) 1 tab PO DAILY [facility] - Labs Labs: 05/01/18 15:10 05/01/18 15:10 - Skin Additional comments: Constitutional Appears: No Acute Distress - Head Exam Head Exam: ATRAUMATIC, NORMOCEPHALIC - Eye Exam Eye Exam: EOMI Pupil Exam: Irregular (left pupil deformed-hx laser sx; right pupil reactive to light) - ENT Exam ENT Exam: Mucous Membranes Moist - Neck Exam Neck exam: Positive for: Full Rom. Negative for: Lymphadenopathy - Respiratory Exam Respiratory Exam: Clear to Auscultation Bilateral, NORMAL BREATHING PATTERN - Cardiovascular Exam Cardiovascular Exam: REGULAR RHYTHM, +S1, +S2 - GI/Abdominal Exam GI & Abdominal Exam: Normal Bowel Sounds, Soft (obese), Tenderness. absent: Distended, Guarding, Rigid - Extremities Exam Extremities exam: Positive for: full ROM, decreased DP pulses. Negative for: normal inspection (ulcer at tip of right 2nd toe 1x 1 cm: dry scab over ulcer: no discharge), pedal edema - Back Exam Back exam: FULL ROM - Neurological Exam Neurological exam: Alert, CN II-XII Intact, Oriented x3 - Psychiatric Exam Psychiatric exam: Normal Affect, Normal Mood - Skin Skin Exam: Dry, Normal Color, Warm Assessment and Plan - Assessment and Plan (Free Text) Assessment: 47 yr old M with PMHx of uncontrolled IDDM type 2 and HTN, admitted for right foot-2nd digit cellulitis vs osteomyelitis and hyperglycemia Plan: Right foot-2nd digit cellulitis with suspected associated osteomyelitis -acute, ESR 108, CRP 21.60 on admission -Right foot xray: No definitive osteomyelitis pattern. MRI is available for f/u of potential osteomyelitis -Right foot MRI: Reported increased STIR signal concerning for acute osteomyelitis of right 2nd distal phalax -c/w Zosyn 3.375gm IV Q8 day #2 -start Vancomycin 1 gm Q12 day #1 -c/w wound care per Podiatry team -ID consult, recommendations are appreciated -Podiatry consult appreciated: Dr. Escalona, f/u recommendations -f/u blood culture -PT/OT evaluation, and treatment Hyponatremia -acute, likely secondary to hyperglycemia -no confusion, no altered mental status -serum Na 129 mmol/l; corrected Na for hyperglycemia: 134 mmol/l -manage hyperglycemia -f/u repeat CMP Hyperglycemia/IDDM type 2 -chronic, uncontrolled (last HbA1c 10.8 on 09/01/16) -f/u hgbA1C -poor adherence to diabetic management at home -hold metformin and home dose of insulin glargine -c/w Regular insulin as per sliding scale protocol -will give levemir 8 units stat once -start Levemir 5 units HS ( will increase to 10 units tomorrow HS) -low carbohydrate/heart healthy/low sodium diet -hypoglycemia protocol in place Intermittent Claudication -duplex arterial US of lower extremities to evaluate for PAD -will consider aspirin Hypertension -chronic, controlled -DC amlodipine 5 mg (home med) -DC lisinopril 5 mg (home med) -start Lisinopril 20 mg PO daily -monitor BP DVT prophylaxis -Heparin 5,000 units SC Q8 <Tammie Sky - Last Filed: 05/02/18 15:58> Objective - Vital Signs/Intake and Output Vital Signs (last 24 hours): Temp Pulse Resp BP Pulse Ox 98.5 F 80 20 114/79 97 05/02/18 08:29 05/02/18 08:29 05/02/18 08:29 05/02/18 12:08 05/02/18 08:29 - Medications Medications: Current Medications Acetaminophen (Tylenol 325mg Tab) 650 mg PO Q6 PRN PRN Reason: Pain, moderate (4-7) Dextrose (Dextrose 50% Inj) 0 ml IV STAT PRN; Protocol PRN Reason: Hypoglycemia Protocol Dextrose (Glutose 15) 0 gm PO ONCE PRN; Protocol PRN Reason: Hypoglycemia Protocol Dextrose (Dextrose 50% Inj) 0 ml IV STAT PRN; Protocol PRN Reason: Hypoglycemia Protocol Dextrose (Glutose 15) 0 gm PO ONCE PRN; Protocol PRN Reason: Hypoglycemia Protocol Glucagon (Glucagen Diagnostic Kit) 0 mg IM STAT PRN; Protocol PRN Reason: Hypoglycemia Protocol Glucagon (Glucagen Diagnostic Kit) 0 mg IM STAT PRN; Protocol PRN Reason: Hypoglycemia Protocol Heparin Sodium (Porcine) (Heparin) 5,000 units SC Q8 [facility] PRN Reason: Protocol Last Admin: 05/02/18 08:23 Dose: 5,000 units Sodium Chloride (Sodium Chloride 0.9%) 1,000 mls @ 125 mls/hr IV .Q8H [facility] Stop: 05/03/18 03:52 Last Admin: 05/02/18 13:00 Dose: 125 mls/hr Vancomycin HCl 1 gm/ Sodium (Chloride) 250 mls @ 166.667 mls/hr IVPB Q12 [facility] PRN Reason: Protocol Last Admin: 05/02/18 10:09 Dose: 166.667 mls/hr Piperacillin Sod/Tazobactam (Sod 3.375 gm/ Sodium Chloride) 100 mls @ 100 mls/ hr IVPB Q8@0500,1300,2100 [facility] PRN Reason: Protocol Last Admin: 05/02/18 12:57 Dose: 100 mls/hr Insulin Detemir (Levemir) 10 units SC HS [facility] Insulin Detemir (Levemir) 10 units SC HS [facility] Stop: 05/02/18 22:01 Insulin Human Regular (Humulin R) 0 units SC ACHS [facility] PRN Reason: Protocol Last Admin: 05/02/18 12:59 Dose: 8 units Lisinopril (Zestril) 20 mg PO DAILY [facility] Multivitamins/Minerals (Therapeutic-M Tab) 1 tab PO DAILY [facility] Last Admin: 05/02/18 08:22 Dose: 1 tab - Labs Labs: 05/01/18 15:10 05/02/18 11:42 Attending/Attestation - Attestation I have personally seen and examined this patient.: Yes I have fully participated in the care of the patient.: Yes I have reviewed all pertinent clinical information, including history, physical exam and plan: Yes
--- NOTE | 2018-05-02 08:20 | MRI ---
MRI right foot History: Right foot 2nd digit cellulitis. Comparison: X-ray dated 05/01/2018 Technique: Multi-echo multiplanar sequences were performed through the right foot without and with the use of intravenous contrast. Findings: Resection of the 1st digit to the level of the base of the 1st proximal phalanx. Soft tissue ulceration seen at the level of the 2nd distal phalanx. Signal abnormality seen within the 2nd distal phalanx with decreased T1 signal and increased STIR signal concerning for an acute osteomyelitis. Some adjacent minimal reactive edema in the 2nd middle phalanx, nonspecific. Degenerative changes in the midfoot with osteochondral change noted at the talonavicular joint space. Impression: Soft tissue ulceration seen at the level of the 2nd distal phalanx. Signal abnormality seen within the 2nd distal phalanx with decreased T1 signal and increased STIR signal concerning for an acute osteomyelitis. Some adjacent minimal reactive edema in the 2nd middle phalanx, nonspecific. Clinical correlation. Additional findings as above.
[2018-05-02] MEDS: Multivitamin With Minerals Tab PO SCH (08:22)
[2018-05-02] MEDS: Insulin Regular 100 units/ml SC SCH ×4 (08:29→23:00)
[2018-05-02 12:33] LABS: ALB/GLOB RATIO 0.8 (1.0-2.1); ALBUMIN 3.4 g/dL (3.5-5.0); ALT/SGPT 81 U/L (21-72); AST/SGOT 72 U/L (17-59); BLOOD UREA NITROGEN 22 mg/dl (9-20); GFR NON-AFRICAN AMERICAN > 60
[2018-05-02] MEDS: Piperacillin/Tazobact 3.375 GM in Sodium Chloride 0.9% 100 ML IVPB SCH ×2 (12:57→22:00)
--- NOTE | 2018-05-02 16:29 | US ---
Date of service: 05/02/2018 PROCEDURE: Duplex ultrasound of the bilateral lower extremity arteries. HISTORY: Intermittent claudication COMPARISON: None available. TECHNIQUE: Grayscale and duplex Doppler evaluation of the bilateral common femoral, superficial femoral, popliteal, posterior tibial and dorsalis pedis arteries was performed.. FINDINGS: RIGHT LOWER EXTREMITY: RIGHT COMMON FEMORAL ARTERY: Widely patent. Maximal flow velocity of 91.7 cm/s. RIGHT SUPERFICIAL FEMORAL ARTERY: Widely patent. Maximal flow velocity of 81.5 cm/s. RIGHT POPLITEAL ARTERY:Widely patent. Maximal flow velocity of 53.1 cm/s. RIGHT POSTERIOR TIBIAL ARTERY: Widely patent. Maximal flow velocity of 46.0 cm/s. RIGHT DORSALIS PEDIS ARTERY: Widely patent. Maximal flow velocity of 52.6 cm/s. LEFT LOWER EXTREMITY: LEFT COMMON FEMORAL ARTERY: Widely patent. Maximal flow velocity of 70.5 cm/s. LEFT SUPERFICIAL FEMORAL ARTERY: Widely patent. Maximal flow velocity of 74.0 cm/s. LEFT POPLITEAL ARTERY:Widely patent. Maximal flow velocity of 40.3 cm/s. LEFT POSTERIOR TIBIAL ARTERY: Widely patent. Maximal flow velocity of 50.0 cm/s. LEFT DORSALIS PEDIS ARTERY: Widely patent. Maximal flow velocity of 19.5 cm/s. OTHER FINDINGS: Solitary morphologically unremarkable lymph node left inguinal region 0.7 x 2.9 cm IMPRESSION: Normal Duplex Doppler of the bilateral lower extremity arteries.
--- NOTE | 2018-05-02 20:44 | CP.PCM.PN ---
Subjective - Date & Time of Evaluation Date of Evaluation: 05/02/18 Time of Evaluation: 20:42 - Subjective Subjective: I D NOTE R/O OSTEOMYELITIS CONTIUE SAME TREATMENT AWAIT LABS Objective - Vital Signs/Intake and Output Vital Signs (last 24 hours): Temp Pulse Resp BP Pulse Ox 98.5 F 83 20 145/88 99 05/02/18 16:29 05/02/18 16:29 05/02/18 16:29 05/02/18 16:29 05/02/18 16:29 - Medications Medications: Current Medications Acetaminophen (Tylenol 325mg Tab) 650 mg PO Q6 PRN PRN Reason: Pain, moderate (4-7) Dextrose (Dextrose 50% Inj) 0 ml IV STAT PRN; Protocol PRN Reason: Hypoglycemia Protocol Dextrose (Glutose 15) 0 gm PO ONCE PRN; Protocol PRN Reason: Hypoglycemia Protocol Dextrose (Dextrose 50% Inj) 0 ml IV STAT PRN; Protocol PRN Reason: Hypoglycemia Protocol Dextrose (Glutose 15) 0 gm PO ONCE PRN; Protocol PRN Reason: Hypoglycemia Protocol Glucagon (Glucagen Diagnostic Kit) 0 mg IM STAT PRN; Protocol PRN Reason: Hypoglycemia Protocol Glucagon (Glucagen Diagnostic Kit) 0 mg IM STAT PRN; Protocol PRN Reason: Hypoglycemia Protocol Heparin Sodium (Porcine) (Heparin) 5,000 units SC Q8 [facility] PRN Reason: Protocol Last Admin: 05/02/18 16:34 Dose: 5,000 units Sodium Chloride (Sodium Chloride 0.9%) 1,000 mls @ 125 mls/hr IV .Q8H [facility] Stop: 05/03/18 03:52 Last Admin: 05/02/18 13:00 Dose: 125 mls/hr Vancomycin HCl 1 gm/ Sodium (Chloride) 250 mls @ 166.667 mls/hr IVPB Q12 [facility] PRN Reason: Protocol Last Admin: 05/02/18 10:09 Dose: 166.667 mls/hr Piperacillin Sod/Tazobactam (Sod 3.375 gm/ Sodium Chloride) 100 mls @ 100 mls/ hr IVPB Q8@0500,1300,2100 [facility] PRN Reason: Protocol Last Admin: 05/02/18 12:57 Dose: 100 mls/hr Insulin Detemir (Levemir) 10 units SC HS [facility] Insulin Detemir (Levemir) 10 units SC HS [facility] Stop: 05/02/18 22:01 Insulin Human Regular (Humulin R) 0 units SC ACHS [facility] PRN Reason: Protocol Last Admin: 05/02/18 16:35 Dose: 8 units Lisinopril (Zestril) 20 mg PO DAILY [facility] Multivitamins/Minerals (Therapeutic-M Tab) 1 tab PO DAILY [facility] Last Admin: 05/02/18 08:22 Dose: 1 tab - Labs Labs: 05/01/18 15:10 05/02/18 11:42
[2018-05-02] MEDS ORDERED: Insulin Detemir 100 Units/ml Inj SC SCH (22:00)
[2018-05-02] MEDS ORDERED: Insulin Detemir 100 Units/ml Inj SC ONE ×2 (22:00)
[2018-05-03] MEDS: Piperacillin/Tazobact 3.375 GM in Sodium Chloride 0.9% 100 ML IVPB SCH ×3 (05:16→20:26)
[2018-05-03 06:43] LABS: BLOOD UREA NITROGEN 21 mg/dl (9-20); CALCIUM 9.6 mg/dL (8.4-10.2); GFR NON-AFRICAN AMERICAN > 60
[2018-05-03 07:03] LABS: BASO % 0.4 % (0.0-2.0); EOS # 0.1 K/uL (0.0-0.7); EOS % 1.6 % (0.0-4.0); HEMOGLOBIN 12.1 g/dL (12.0-18.0); LYMPH # 1.7 K/uL (1.0-4.3); LYMPH % 45.5 % (20.0-40.0); MEAN CELL VOLUME 90.3 fl (80.0-94.0); MEAN CORPUSCULAR HEMOGLOBIN 31.6 pg (27.0-31.0); MEAN PLATELET VOLUME 9.7 fl (7.2-11.7); MONO # 0.3 K/uL (0.0-0.8); MONO % 8.6 % (0.0-10.0); NEUT # 1.6 K/uL (1.8-7.0); NEUT % 43.9 % (50.0-75.0); NRBC % 0.1 % (0.0-0.0); RBC 3.84 Mil/uL (4.40-5.90); RED CELL DISTRIBUTION WIDTH 13.6 % (11.5-14.5); WHITE BLOOD COUNT 3.6 K/uL (4.8-10.8)
--- NOTE | 2018-05-03 07:46 | CP.PCM.PN ---
Subjective - Date & Time of Evaluation Date of Evaluation: 05/03/18 Time of Evaluation: 07:44 - Subjective Subjective: Podiatry progress note for attending Dr. Escalona; 47 Y/O F patient seen and evaluated at bedside for pain and redness right 2nd toe. Patient is AAO x3 and in NAD. Patient states the redness in his foot has decreased and the pain is less. Denies any acute overnight events. Patient denies f/n/v/sob/CP. He has no other pedal complaints at this time. Objective - Vital Signs/Intake and Output Vital Signs (last 24 hours): Temp Pulse Resp BP Pulse Ox 98.4 F 83 18 169/83 H 98 05/03/18 00:03 05/03/18 00:05 05/03/18 00:03 05/03/18 04:21 05/03/18 00:03 - Medications Medications: Current Medications Acetaminophen (Tylenol 325mg Tab) 650 mg PO Q6 PRN PRN Reason: Pain, moderate (4-7) Dextrose (Dextrose 50% Inj) 0 ml IV STAT PRN; Protocol PRN Reason: Hypoglycemia Protocol Dextrose (Glutose 15) 0 gm PO ONCE PRN; Protocol PRN Reason: Hypoglycemia Protocol Dextrose (Dextrose 50% Inj) 0 ml IV STAT PRN; Protocol PRN Reason: Hypoglycemia Protocol Dextrose (Glutose 15) 0 gm PO ONCE PRN; Protocol PRN Reason: Hypoglycemia Protocol Glucagon (Glucagen Diagnostic Kit) 0 mg IM STAT PRN; Protocol PRN Reason: Hypoglycemia Protocol Glucagon (Glucagen Diagnostic Kit) 0 mg IM STAT PRN; Protocol PRN Reason: Hypoglycemia Protocol Heparin Sodium (Porcine) (Heparin) 5,000 units SC Q8 [facility] PRN Reason: Protocol Last Admin: 05/03/18 01:55 Dose: 5,000 units Vancomycin HCl 1 gm/ Sodium (Chloride) 250 mls @ 166.667 mls/hr IVPB Q12 [facility] PRN Reason: Protocol Last Admin: 05/02/18 20:57 Dose: 166.667 mls/hr Piperacillin Sod/Tazobactam (Sod 3.375 gm/ Sodium Chloride) 100 mls @ 100 mls/ hr IVPB Q8@0500,1300,2100 [facility] PRN Reason: Protocol Last Admin: 05/03/18 05:16 Dose: 100 mls/hr Insulin Detemir (Levemir) 10 units SC HS [facility] Insulin Human Regular (Humulin R) 0 units SC ACHS [facility] [place] PRN Reason: Protocol Last Admin: 05/02/18 23:00 Dose: Not Given Lisinopril (Zestril) 20 mg PO DAILY [facility] Multivitamins/Minerals (Therapeutic-M Tab) 1 tab PO DAILY [facility] Last Admin: 05/02/18 08:22 Dose: 1 tab - Labs Labs: 05/03/18 06:05 05/03/18 06:05 - Constitutional Appears: Well, Non-toxic, No Acute Distress - Head Exam Head Exam: ATRAUMATIC, NORMOCEPHALIC - Extremities Exam Additional comments: Right LE focused exam: Vasc: DP/PT are Palpable 2/4. Cap refill < 3 seconds to all digits except Hallux (s/p Amp). erythema noted extending throughout the right 2nd toe, decreasing. Neuro: Protective sensation diminished. Gross sensation intact Derm: An ulcer noted at the tip of the right 2nd toe measuring 1cm x 1cmx 0.1 cm. the ulcer is covered by dry scab. No probe to bone, No undermining, no mal- odor noted. No tracking. MSK: Mild pain on palpation to Right 2nd toe. - Neurological Exam Neurological Exam: Alert, Awake, Oriented x3 - Psychiatric Exam Psychiatric exam: Normal Affect, Normal Mood Assessment and Plan - Assessment and Plan (Free Text) Assessment: 47 y/o patient seen and examined at bedside for right 2nd toe ulcer and acute osteomyelitis Plan: Patient seen and evaluated Plan discussed with attending Dr. Escalona X-ray reviewed: no evidence of osteomyelitis Chart, Labs and vitals reviewed; Afebrile, No leukocytosis, glucose: 283 mg/dL Dressed wound with bacitracin and DSD ESR: 108 CRP 21.6 (on admission) MRI of the right foot: signal abnormality seen within the second distal phalanx with decreased T1 signal and increased STIR signal concerning for acute osteomyelitis, some adjacent minimal reactive edema in the second middle phalanx , nonspecific Family medicine consult to ID - awaiting recs, recs appreciated Patient stable from podiatric standpoint to leave on IV antibiotics per ID and med recs Podiatry will follow patient while in house
[2018-05-03] MEDS: Insulin Regular 100 units/ml SC SCH ×4 (09:09→22:25)
[2018-05-03] MEDS: Multivitamin With Minerals Tab PO SCH (09:57)
--- NOTE | 2018-05-03 12:05 | CP.PCM.PN ---
<Sybil Diaz - Last Filed: 05/03/18 14:38> Subjective - Date & Time of Evaluation Date of Evaluation: 05/03/18 Time of Evaluation: 08:20 - Subjective Subjective: Patient was seen, and examined at bedside this morning. Patient denies pain at this evaluation. Denies chest pain, SOB, chills, abdominal pain, diarrheas, urinary symptoms. BP was elevated around midnight, and Lisinopril 10 mg PO once was ordered. Mildly elevated this morning, but patient remains asymptomatic. Afebrile on admission. Objective - Vital Signs/Intake and Output Vital Signs (last 24 hours): Temp Pulse Resp BP Pulse Ox 98 F 84 17 133/84 98 05/03/18 11:49 05/03/18 11:49 05/03/18 11:49 05/03/18 11:49 05/03/18 11:49 - Medications Medications: Current Medications Acetaminophen (Tylenol 325mg Tab) 650 mg PO Q6 PRN PRN Reason: Pain, moderate (4-7) Dextrose (Dextrose 50% Inj) 0 ml IV STAT PRN; Protocol PRN Reason: Hypoglycemia Protocol Dextrose (Glutose 15) 0 gm PO ONCE PRN; Protocol PRN Reason: Hypoglycemia Protocol Dextrose (Dextrose 50% Inj) 0 ml IV STAT PRN; Protocol PRN Reason: Hypoglycemia Protocol Dextrose (Glutose 15) 0 gm PO ONCE PRN; Protocol PRN Reason: Hypoglycemia Protocol Glucagon (Glucagen Diagnostic Kit) 0 mg IM STAT PRN; Protocol PRN Reason: Hypoglycemia Protocol Glucagon (Glucagen Diagnostic Kit) 0 mg IM STAT PRN; Protocol PRN Reason: Hypoglycemia Protocol Heparin Sodium (Porcine) (Heparin) 5,000 units SC Q8 [facility] PRN Reason: Protocol Last Admin: 05/03/18 09:07 Dose: 5,000 units Hydrochlorothiazide (Microzide) 12.5 mg PO DAILY [facility] Vancomycin HCl 1 gm/ Sodium (Chloride) 250 mls @ 166.667 mls/hr IVPB Q12 [facility] PRN Reason: Protocol Last Admin: 05/03/18 09:58 Dose: 166.667 mls/hr Piperacillin Sod/Tazobactam (Sod 3.375 gm/ Sodium Chloride) 100 mls @ 100 mls/ hr IVPB Q8@0500,1300,2100 [facility] PRN Reason: Protocol Last Admin: 05/03/18 05:16 Dose: 100 mls/hr Insulin Detemir (Levemir) 10 units SC HS [facility] Insulin Human Regular (Humulin R) 0 units SC [facility] PRN Reason: Protocol Last Admin: 05/03/18 09:09 Dose: 4 units Lisinopril (Zestril) 20 mg PO DAILY [facility] Last Admin: 05/03/18 09:58 Dose: 20 mg Multivitamins/Minerals (Therapeutic-M Tab) 1 tab PO DAILY [facility] Last Admin: 05/03/18 09:57 Dose: 1 tab - Labs Labs: 05/03/18 06:05 05/03/18 06:05 - Skin Additional comments: Constitutional Appears: No Acute Distress - Head Exam Head Exam: ATRAUMATIC, NORMOCEPHALIC - Eye Exam Eye Exam: EOMI Pupil Exam: Irregular (left pupil deformed-hx laser sx; right pupil reactive to light) - ENT Exam ENT Exam: Mucous Membranes Moist - Neck Exam Neck exam: Positive for: Full Rom. Negative for: Lymphadenopathy - Respiratory Exam Respiratory Exam: Clear to Auscultation Bilateral, NORMAL BREATHING PATTERN - Cardiovascular Exam Cardiovascular Exam: REGULAR RHYTHM, +S1, +S2 - GI/Abdominal Exam GI & Abdominal Exam: Normal Bowel Sounds, Soft (obese), Tenderness. absent: Distended, Guarding, Rigid - Extremities Exam Extremities exam: Positive for: full ROM, decreased DP pulses. Negative for: normal inspection (ulcer at tip of right 2nd toe 1x 1 cm: dry scab over ulcer: no discharge), pedal edema - Back Exam Back exam: FULL ROM - Neurological Exam Neurological exam: Alert, CN II-XII Intact, Oriented x3 - Psychiatric Exam Psychiatric exam: Normal Affect, Normal Mood - Skin Skin Exam: Dry, Normal Color, Warm Assessment and Plan - Assessment and Plan (Free Text) Assessment: 47 yr old M with PMHx of uncontrolled IDDM type 2 and HTN, admitted for right foot-2nd digit cellulitis vs osteomyelitis and hyperglycemia. Right foot MRI: Reported increased STIR signal concerning for acute osteomyelitis of right 2nd distal phalax. ID was consulted. Patient is on IV antibiotics as per ID recommendations day #3. Plan: Right foot-2nd digit cellulitis with suspected associated osteomyelitis -acute, ESR 108, CRP 21.60 on admission -Right foot xray: No definitive osteomyelitis pattern. MRI is available for f/u of potential osteomyelitis -Right foot MRI: Reported increased STIR signal concerning for acute osteomyelitis of right 2nd distal phalax -c/w Zosyn 3.375gm IV Q8 day #3 -c/w Vancomycin 1 gm Q12 day #2 -c/w wound care per Podiatry team -as per podiatry : there is no open wound for cultures -ID consult, recommendations are appreciated -Podiatry consult appreciated: Dr. Escalona, f/u recommendations -blood culture x 2 negative for 24 hours -PT/OT evaluation, and treatment Hyperglycemia/IDDM type 2 -chronic, uncontrolled (last HbA1c 10.8 on 09/01/16) -hgbA1C elevated 12.2 -poor adherence to diabetic management at home -hold metformin and home dose of insulin glargine -c/w Regular insulin as per sliding scale protocol -will give levemir 8 units stat once -c/w Levemir 10 units HS -low carbohydrate/heart healthy/low sodium diet -hypoglycemia protocol in place Hypertension -chronic, uncontrolled -c/w Lisinopril 20 mg PO daily -start Hctz 12.5 mg -monitor BP Hyponatremia resolved -acute, likely secondary to hyperglycemia -no confusion, no altered mental status on admission -serum Na 129 mmol/l; corrected Na for hyperglycemia: 134 mmol/l -manage hyperglycemia -f/u repeat CMP Intermittent Claudication -duplex arterial US of lower extremities done on 05/02 reported as normal -will consider aspirin DVT prophylaxis -Heparin 5,000 units SC Q8 <Tammie Sky - Last Filed: 05/03/18 16:33> Objective - Vital Signs/Intake and Output Vital Signs (last 24 hours): Temp Pulse Resp BP Pulse Ox 98 F 84 17 133/84 98 05/03/18 11:49 05/03/18 11:49 05/03/18 11:49 05/03/18 11:49 05/03/18 11:49 - Medications Medications: Current Medications Acetaminophen (Tylenol 325mg Tab) 650 mg PO Q6 PRN PRN Reason: Pain, moderate (4-7) Dextrose (Dextrose 50% Inj) 0 ml IV STAT PRN; Protocol PRN Reason: Hypoglycemia Protocol Dextrose (Glutose 15) 0 gm PO ONCE PRN; Protocol PRN Reason: Hypoglycemia Protocol Dextrose (Dextrose 50% Inj) 0 ml IV STAT PRN; Protocol PRN Reason: Hypoglycemia Protocol Dextrose (Glutose 15) 0 gm PO ONCE PRN; Protocol PRN Reason: Hypoglycemia Protocol Glucagon (Glucagen Diagnostic Kit) 0 mg IM STAT PRN; Protocol PRN Reason: Hypoglycemia Protocol Glucagon (Glucagen Diagnostic Kit) 0 mg IM STAT PRN; Protocol PRN Reason: Hypoglycemia Protocol Heparin Sodium (Porcine) (Heparin) 5,000 units SC Q8 [facility] PRN Reason: Protocol Last Admin: 05/03/18 09:07 Dose: 5,000 units Hydrochlorothiazide (Microzide) 12.5 mg PO DAILY [facility] Last Admin: 05/03/18 15:45 Dose: 12.5 mg Vancomycin HCl 1 gm/ Sodium (Chloride) 250 mls @ 166.667 mls/hr IVPB Q12 [facility] PRN Reason: Protocol Last Admin: 05/03/18 09:58 Dose: 166.667 mls/hr Piperacillin Sod/Tazobactam (Sod 3.375 gm/ Sodium Chloride) 100 mls @ 100 mls/ hr IVPB Q8@0500,1300,2100 [facility] PRN Reason: Protocol Last Admin: 05/03/18 12:34 Dose: 100 mls/hr Insulin Detemir (Levemir) 14 units SC HS [facility] Insulin Human Regular (Humulin R) 0 units SC A[facility]S [facility] PRN Reason: Protocol Last Admin: 05/03/18 12:32 Dose: 8 units Lisinopril (Zestril) 20 mg PO DAILY [facility] Last Admin: 05/03/18 09:58 Dose: 20 mg Multivitamins/Minerals (Therapeutic-M Tab) 1 tab PO DAILY [facility] Last Admin: 05/03/18 09:57 Dose: 1 tab - Labs Labs: 05/03/18 06:05 05/03/18 06:05 Attending/Attestation - Attestation I have personally seen and examined this patient.: Yes I have fully participated in the care of the patient.: Yes I have reviewed all pertinent clinical information, including history, physical exam and plan: Yes Notes (Text): Discussed case with ID - Dr De La Torre - recommended 6 wks of IV antibiotic - rec IV Vanco 1.25g and Cefepime 1 gram IV daily ( Rx given to SW) - will insert PICC line - pt will come to [facility] for infusion daily - monitor trough level and Crea weekly while on IV Vanco - pt will need to ff up with Podiatry as outpt - Increase Levemir to 16 units q hs ( pt on Lantus 12 units at home ) however glucose still uncontrolled - add Toprol 25 mg daily
--- NOTE | 2018-05-03 16:27 | CP.PCM.PN ---
Subjective - Date & Time of Evaluation Date of Evaluation: 05/03/18 Time of Evaluation: 16:00 - Subjective Subjective: I D NOTE REVIEWED C HOSPITALIST,WILL NEED 6WEEKS OF IV ANTIBIOTICS THERE WILL BE NO PODIATRY INTERVENTION AND WE DO NOT HAVE AVAILABILITY OF CULTURES WILL NEED TO COVER BROADLY .WE MUST CONSIDER HIS INSURANCE STATUS (OR LACK OF) WOULD RX c vancomycin 1 to 1.5 gm daily and maxipeme 1 gm daily as outpatient. Objective - Vital Signs/Intake and Output Vital Signs (last 24 hours): Temp Pulse Resp BP Pulse Ox 98 F 84 17 133/84 98 05/03/18 11:49 05/03/18 11:49 05/03/18 11:49 05/03/18 11:49 05/03/18 11:49 - Medications Medications: Current Medications Acetaminophen (Tylenol 325mg Tab) 650 mg PO Q6 PRN PRN Reason: Pain, moderate (4-7) Dextrose (Dextrose 50% Inj) 0 ml IV STAT PRN; Protocol PRN Reason: Hypoglycemia Protocol Dextrose (Glutose 15) 0 gm PO ONCE PRN; Protocol PRN Reason: Hypoglycemia Protocol Dextrose (Dextrose 50% Inj) 0 ml IV STAT PRN; Protocol PRN Reason: Hypoglycemia Protocol Dextrose (Glutose 15) 0 gm PO ONCE PRN; Protocol PRN Reason: Hypoglycemia Protocol Glucagon (Glucagen Diagnostic Kit) 0 mg IM STAT PRN; Protocol PRN Reason: Hypoglycemia Protocol Glucagon (Glucagen Diagnostic Kit) 0 mg IM STAT PRN; Protocol PRN Reason: Hypoglycemia Protocol Heparin Sodium (Porcine) (Heparin) 5,000 units SC Q8 [facility] PRN Reason: Protocol Last Admin: 05/03/18 09:07 Dose: 5,000 units Hydrochlorothiazide (Microzide) 12.5 mg PO DAILY [facility] Last Admin: 05/03/18 15:45 Dose: 12.5 mg Vancomycin HCl 1 gm/ Sodium (Chloride) 250 mls @ 166.667 mls/hr IVPB Q12 [facility] PRN Reason: Protocol Last Admin: 05/03/18 09:58 Dose: 166.667 mls/hr Piperacillin Sod/Tazobactam (Sod 3.375 gm/ Sodium Chloride) 100 mls @ 100 mls/ hr IVPB Q8@0500,1300,2100 [facility] PRN Reason: Protocol Last Admin: 09/12/18 12:34 Dose: 100 mls/hr Insulin Detemir (Levemir) 14 units SC [facility] Insulin Human Regular (Humulin R) 0 units SC [facility] PRN Reason: Protocol Last Admin: 05/03/18 12:32 Dose: 8 units Lisinopril (Zestril) 20 mg PO DAILY [facility] Last Admin: 05/03/18 09:58 Dose: 20 mg Multivitamins/Minerals (Therapeutic-M Tab) 1 tab PO DAILY [facility] Last Admin: 05/03/18 09:57 Dose: 1 tab - Labs Labs: 05/03/18 06:05 05/03/18 06:05
[2018-05-03] MEDS: Metoprolol Succinate 25 mg XL Tab PO SCH (18:24)
[2018-05-03] MEDS ORDERED: Insulin Detemir 100 Units/ml Inj SC SCH ×3 (22:00)
[2018-05-04] MEDS: Piperacillin/Tazobact 3.375 GM in Sodium Chloride 0.9% 100 ML IVPB SCH ×2 (04:58→12:02)
[2018-05-04] MEDS: Insulin Regular 100 units/ml SC SCH ×2 (07:01→11:18)
[2018-05-04] MEDS: Multivitamin With Minerals Tab PO SCH (08:41)
[2018-05-04] MEDS: Metoprolol Succinate 25 mg XL Tab PO SCH (08:42)
--- NOTE | 2018-05-04 08:44 | CP.PCM.PN ---
Subjective - Date & Time of Evaluation Date of Evaluation: 05/04/18 Time of Evaluation: 08:42 - Subjective Subjective: Podiatry progress note for attending Dr. Escalona; 47 Y/O F patient seen and evaluated at bedside for pain and redness right 2nd toe. Patient is AAO x3 and in NAD. Patient states the redness in his foot has decreased and the pain is less. Denies any acute overnight events. Patient denies f/n/v/sob/CP. He has no other pedal complaints at this time. Objective - Vital Signs/Intake and Output Vital Signs (last 24 hours): Temp Pulse Resp BP Pulse Ox 98 F 86 19 157/83 H 99 05/04/18 00:25 05/04/18 01:50 05/04/18 00:25 05/04/18 01:50 05/04/18 00:25 - Medications Medications: Current Medications Acetaminophen (Tylenol 325mg Tab) 650 mg PO Q6 PRN PRN Reason: Pain, moderate (4-7) Dextrose (Dextrose 50% Inj) 0 ml IV STAT PRN; Protocol PRN Reason: Hypoglycemia Protocol Dextrose (Glutose 15) 0 gm PO ONCE PRN; Protocol PRN Reason: Hypoglycemia Protocol Dextrose (Dextrose 50% Inj) 0 ml IV STAT PRN; Protocol PRN Reason: Hypoglycemia Protocol Dextrose (Glutose 15) 0 gm PO ONCE PRN; Protocol PRN Reason: Hypoglycemia Protocol Glucagon (Glucagen Diagnostic Kit) 0 mg IM STAT PRN; Protocol PRN Reason: Hypoglycemia Protocol Glucagon (Glucagen Diagnostic Kit) 0 mg IM STAT PRN; Protocol PRN Reason: Hypoglycemia Protocol Heparin Sodium (Porcine) (Heparin) 5,000 units SC Q8 [facility] PRN Reason: Protocol Last Admin: 05/04/18 00:32 Dose: 5,000 units Hydrochlorothiazide (Microzide) 12.5 mg PO DAILY [facility] Last Admin: 05/03/18 15:45 Dose: 12.5 mg Vancomycin HCl 1 gm/ Sodium (Chloride) 250 mls @ 166.667 mls/hr IVPB Q12 [facility] PRN Reason: Protocol Last Admin: 05/03/18 22:08 Dose: 166.667 mls/hr Piperacillin Sod/Tazobactam (Sod 3.375 gm/ Sodium Chloride) 100 mls @ 100 mls/ hr IVPB Q8@0500,1300,2100 [facility] PRN Reason: Protocol Last Admin: 05/04/18 04:58 Dose: 100 mls/hr Insulin Detemir (Levemir) 16 units SC HS [facility] Last Admin: 05/03/18 22:25 Dose: 16 unit Insulin Human Regular (Humulin R) 0 units SC ACHS [facility] PRN Reason: Protocol Last Admin: 05/04/18 07:01 Dose: 8 units Lisinopril (Zestril) 20 mg PO DAILY [facility] Last Admin: 05/03/18 09:58 Dose: 20 mg Metoprolol Succinate (Toprol Xl) 25 mg PO DAILY [facility] Last Admin: 05/03/18 18:24 Dose: 25 mg Multivitamins/Minerals (Therapeutic-M Tab) 1 tab PO DAILY [facility] Last Admin: 05/03/18 09:57 Dose: 1 tab - Labs Labs: 05/03/18 06:05 05/03/18 06:05 - Constitutional Appears: Well, Non-toxic, No Acute Distress - Head Exam Head Exam: ATRAUMATIC, NORMOCEPHALIC - Extremities Exam Additional comments: Right LE focused exam: Vasc: DP/PT are Palpable 2/4. Cap refill < 3 seconds to all digits except Hallux (s/p Amp). erythema noted extending throughout the right 2nd toe, decreasing. Neuro: Protective sensation diminished. Gross sensation intact Derm: An ulcer noted at the tip of the right 2nd toe measuring 1cm x 1cmx 0.1 cm. the ulcer is covered by dry scab. No probe to bone, No undermining, no mal- odor noted. No tracking. Cellulitis resolving. MSK: Mild pain on palpation to Right 2nd toe. - Neurological Exam Neurological Exam: Alert, Awake, Oriented x3 - Psychiatric Exam Psychiatric exam: Normal Affect, Normal Mood Assessment and Plan - Assessment and Plan (Free Text) Assessment: 47 y/o patient seen and examined at bedside for right 2nd toe ulcer and acute osteomyelitis Plan: Patient seen and evaluated Plan discussed with attending Dr. Escalona X-ray reviewed: no evidence of osteomyelitis Chart, Labs and vitals reviewed; Afebrile, No leukocytosis, glucose: 283 mg/dL Dressed wound with bacitracin and DSD ESR: 108 CRP 21.6 (on admission) MRI of the right foot: signal abnormality seen within the second distal phalanx with decreased T1 signal and increased STIR signal concerning for acute osteomyelitis, some adjacent minimal reactive edema in the second middle phalanx , nonspecific Family medicine consult to ID - vancomycin 1 to 1.5 gm and maxipeme 1 gm daily as outpatient - recs appreciated Patient stable from podiatric standpoint to leave on IV antibiotics per ID and med recs Podiatry will follow patient while in house
--- NOTE | 2018-05-04 10:46 | CP.PCM.DIS ---
Provider - Provider Date of Admission: 05/01/18 20:25 Attending physician: Mulugeta Bryan MD Consults: POdiatry: Dr. Escalona Time Spent in preparation of Discharge (in minutes): 30 Diagnosis - Discharge Diagnosis (1) Cellulitis of toe of right foot Status: Acute Comment: patient was cleared by podiatry standpoint to be discharge on IV antibiotic, andf/u as outpatient in podiatry clinic. (2) Acute osteomyelitis Status: Acute Comment: 6 weeks of IV vancomycin, and cefepime as per ID. (3) DM2 (diabetes mellitus, type 2) Status: Chronic (4) HTN (hypertension) Status: Chronic Hospital Course - Lab Results Lab Results: Micro Results 05/01/18 15:10 Blood Blood Culture - Preliminary NO GROWTH AFTER 48 HOURS 05/01/18 14:40 Blood Blood Culture - Preliminary NO GROWTH AFTER 48 HOURS Most Recent Lab Values WBC 3.6 K/uL (4.8-10.8) L 05/03/18 06:05 RBC 3.84 Mil/uL (4.40-5.90) L 05/03/18 06:05 Hgb 12.1 g/dL (12.0-18.0) 05/03/18 06:05 Hct 34.7 % (35.0-51.0) L 05/03/18 06:05 MCV 90.3 fl (80.0-94.0) 05/03/18 06:05 MCH 31.6 pg (27.0-31.0) H 05/03/18 06:05 MCHC 35.0 g/dL (33.0-37.0) 05/03/18 06:05 RDW 13.6 % (11.5-14.5) 05/03/18 06:05 Plt Count 112 K/uL (130-400) L 05/03/18 06:05 MPV 9.7 fl (7.2-11.7) 05/03/18 06:05 Neut % (Auto) 43.9 % (50.0-75.0) L 05/03/18 06:05 Lymph % (Auto) 45.5 % (20.0-40.0) H 05/03/18 06:05 Leon % (Auto) 8.6 % (0.0-10.0) 05/03/18 06:05 Eos % (Auto) 1.6 % (0.0-4.0) 05/03/18 06:05 Baso % (Auto) 0.4 % (0.0-2.0) 05/03/18 06:05 Neut # (Auto) 1.6 K/uL (1.8-7.0) L 05/03/18 06:05 Lymph # (Auto) 1.7 K/uL (1.0-4.3) 05/03/18 06:05 Leon # (Auto) 0.3 K/uL (0.0-0.8) 05/03/18 06:05 Eos # (Auto) 0.1 K/uL (0.0-0.7) 05/03/18 06:05 Baso # (Auto) 0.0 K/uL (0.0-0.2) 05/03/18 06:05 ESR 108 mm/hr (0-15) H 05/01/18 17:50 pO2 25 mm/Hg (30-55) L 05/01/18 15:20 VBG pH 7.37 (7.32-7.43) 05/01/18 15:20 VBG pCO2 47 mmHg (40-60) 05/01/18 15:20 VBG HCO3 24.5 mmol/L 05/01/18 15:20 VBG Total CO2 28.6 mmol/L (22-28) H 05/01/18 15:20 VBG O2 Sat (Calc) 55.2 % (40-65) 05/01/18 15:20 VBG Base Excess 1.3 mmol/L (0.0-2.0) 05/01/18 15:20 VBG Potassium 4.7 mmol/L (3.6-5.2) 05/01/18 15:20 Sodium 127.0 mmol/L (132-148) L 05/01/18 15:20 Chloride 93.0 mmol/L (98-107) L 05/01/18 15:20 Glucose 418 mg/dL (75-110) H* D 05/01/18 15:20 Lactate 1.6 mmol/L (0.7-2.1) 05/01/18 15:20 FiO2 21.0 % 05/01/18 15:20 Crit Value Called To Jess faria 05/01/18 15:20 Crit Value Called By 23 05/01/18 15:20 Crit Value Read Back Y 05/01/18 15:20 Blood Gas Notified Time 1530 05/01/18 15:20 Sodium 135 mmol/l (132-148) 05/03/18 06:05 Potassium 4.2 MMOL/L (3.6-5.0) 05/03/18 06:05 Chloride 101 mmol/L (98-107) 05/03/18 06:05 Carbon Dioxide 27 mmol/L (22-30) 05/03/18 06:05 Anion Gap 11 (10-20) 05/03/18 06:05 BUN 21 mg/dl (9-20) H 05/03/18 06:05 Creatinine 0.9 mg/dl (0.8-1.5) 05/03/18 06:05 Est GFR ( Amer) > 60 05/03/18 06:05 Est GFR (Non-Af Amer) > 60 05/03/18 06:05 POC Glucose (mg/dL) 353 mg/dL (65-110) H 05/04/18 05:27 Random Glucose 283 mg/dL (75-110) H 05/03/18 06:05 Hemoglobin A1c 12.2 % (4.2-6.5) H 05/02/18 11:42 Calcium 9.6 mg/dL (8.4-10.2) 05/03/18 06:05 Total Bilirubin 0.7 mg/dl (0.2-1.3) 05/02/18 11:42 AST 72 U/L (17-59) H 05/02/18 11:42 ALT 81 U/L (21-72) H 05/02/18 11:42 Alkaline Phosphatase 181 U/L (38-126) H 05/02/18 11:42 C-Reactive Protein 21.60 mg/L (0.0-9.9) H 05/01/18 17:50 Total Protein 7.3 G/DL (6.3-8.2) 05/02/18 11:42 Albumin 3.4 g/dL (3.5-5.0) L 05/02/18 11:42 Globulin 4.0 gm/dL (2.2-3.9) H 05/02/18 11:42 Albumin/Globulin Ratio 0.8 (1.0-2.1) L 05/02/18 11:42 Venous Blood Potassium 4.7 mmol/L (3.6-5.2) 05/01/18 15:20 Urine Color Yellow (YELLOW) 05/01/18 17:50 Urine Clarity Slighty-cloudy (Clear) 05/01/18 17:50 Urine pH 6.0 (5.0-8.0) 05/01/18 17:50 Ur Specific [place] 1.027 (1.003-1.030) 05/01/18 17:50 Urine Protein >=500 mg/dL (NEGATIVE) 05/01/18 17:50 Urine Glucose (UA) >=500 mg/dL (Normal) 05/01/18 17:50 Urine Ketones Negative mg/dL (NEGATIVE) 05/01/18 17:50 Urine Blood Small (NEGATIVE) 05/01/18 17:50 Urine Nitrate Negative (NEGATIVE) 05/01/18 17:50 Urine Bilirubin Negative (NEGATIVE) 05/01/18 17:50 Urine Urobilinogen 0.2-1.0 mg/dL (0.2-1.0) 05/01/18 17:50 Ur Leukocyte Esterase Neg Malik/uL (Negative) 05/01/18 17:50 Urine RBC (Auto) 2 /hpf (0-3) 05/01/18 17:50 Urine Microscopic WBC 2 /hpf (0-5) 05/01/18 17:50 Urine Bacteria Rare (<OCC) 05/01/18 17:50 Vancomycin Trough 9.5 ug/mL (5.0-10.0) 05/03/18 20:30 - Hospital Course Hospital Course: 47 yr old M with PMHx of uncontrolled IDDM type 2 and uncontrolled HTN, admitted for right foot-2nd digit cellulitis vs osteomyelitis and hyperglycemia. On admission Right foot MRI: Reported increased STIR signal concerning for acute osteomyelitis of right 2nd distal phalax. ID was consulted. Patient is on IV antibiotics Vanco, and Zosyn as per ID recommendations day #4. Patient will need to complete 6 weeks of IV Vancomycin 1.25 gm, and Cefepime 1 gm daily as outpatient as per ID recommendations. Pt will come to [facility] for infusion daily Per ID will need to cover broadly, because we do not have availability of cultures fo an open wound. PICC line inserted by IR on 05/04/18. Podiatry performed wound care while in admission. No surgical intervention was recommended at this time. Patient will follow up with Podiatry , Dr. Escalona, in 1 week. Also on admission was noted uncontrolled DM, and HTN. HgbA1C was 12.2. Diabetes , and HTN regimen was modified on admission, and strongly recommended f/u as outpatient with a PMD. Also patient was started on aspirin, and statin for primary prevention. Appointment for [facility] was made this morning for 05/11/18 at 11 am. Patient was made aware of the appointment. Discharge meds: Metoprolol Succ 50 mg daily( increased on admission from 25 to 50) Lisinopril 20 mg PO aspirin 81 mg Atorvastatin 20 mg HS metformin 1000 mg BID( home med) Lantus 20 units HS(home med, at home was on 12 units daily) vancomycin 1.25 gm IV daily x 6 weeks Cefepime 1 gm IV daily x 6 weeks Monitor trough level and Crea weekly while on IV Vanco - Date & Time of H&P Date of H&P: 05/01/18 Time of H&P: 21:00 Discharge Exam - Head Exam Head Exam: ATRAUMATIC, NORMOCEPHALIC - Skin Additional comments: Constitutional Appears: No Acute Distress - Head Exam Head Exam: ATRAUMATIC, NORMOCEPHALIC - Eye Exam Eye Exam: EOMI Pupil Exam: Irregular (left pupil deformed-hx laser sx; right pupil reactive to light) - ENT Exam ENT Exam: Mucous Membranes Moist - Neck Exam Neck exam: Positive for: Full Rom. Negative for: Lymphadenopathy - Respiratory Exam Respiratory Exam: Clear to Auscultation Bilateral, NORMAL BREATHING PATTERN - Cardiovascular Exam Cardiovascular Exam: REGULAR RHYTHM, +S1, +S2 - GI/Abdominal Exam GI & Abdominal Exam: Normal Bowel Sounds, Soft (obese), Tenderness. absent: Distended, Guarding, Rigid - Extremities Exam Extremities exam: Positive for: full ROM, decreased DP pulses. Negative for: normal inspection (ulcer at tip of right 2nd toe 1x 1 cm: dry scab over ulcer: no discharge), pedal edema - Back Exam Back exam: FULL ROM - Neurological Exam Neurological exam: Alert, CN II-XII Intact, Oriented x3 - Psychiatric Exam Psychiatric exam: Normal Affect, Normal Mood - Skin Skin Exam: Dry, Normal Color, Warm Discharge Plan - Discharge Medications Prescriptions: Aspirin [Aspirin Chewable] 81 mg PO DAILY #30 ctb Atorvastatin [Lipitor] 20 mg PO DAILY #30 tab Cefepime 1gm in NS 100ml [Maxipime 1gm] 1 gm IVPB DAILY #42 bag Insulin Glargine, Recombina [Lantus] 20 unit SQ HS #2 vial Lisinopril [Zestril] 20 mg PO DAILY #30 tab MetFORMIN [glucoPHAGE] 1,000 mg PO BID #60 tab Metoprolol Succinate XL [Toprol XL] 50 mg PO DAILY #30 tab Multivitamin,Therapeutic [Oncovite] 1 tab PO DAILY 30 Days tab Vancomycin/0.9 % Sod Chloride [Vanco 1.25 gm/250 ml-0.9% NaCl] 1.25 gm IV DAILY #42 plast..bag - Follow Up Plan Condition: IMPROVED Disposition: HOME/ ROUTINE [facility] Jonathan Escalona DPM [Medical Doctor] -
[2018-05-04 12:00] VITALS: O2SAT 94
[2018-05-04 12:57] VITALS: BP 130/90; PULSE 73; RESP 18; TEMP 97.1
[2018-05-04] MEDS ORDERED: Lidocaine 1% 5ml Abboject ONE (13:03)
--- NOTE | 2018-05-04 13:45 | PCM.SURG1 ---
Surgeon's Initial Post Op Note - Surgeon's Notes Surgeon: Dominic Coleman MD Auto Design Checker: NONE Type of Anesthesia: Local Pre-Operative Diagnosis: Infection Operative Findings: US showed patent right basilic vein. Post-Operative Diagnosis: Infection Operation Performed: Single lumen picc placement right arm, 37 cm. Tip is in the SVC. Specimen/Specimens Removed: NONE Estimated Blood Loss: EBL {In ML}: 2 Blood Products Given: N/A Drains Used: No Drains Post-Op Condition: Fair Date of Surgery/Procedure: 05/04/18 Time of Surgery/Procedure: 13:40
--- NOTE | 2018-05-04 13:53 | VASCULAR ---
PROCEDURE: Date of procedure: 05/04/2018 Procedure: 1. Placement of a right arm PICC with ultrasound and fluoroscopic guidance, CPT 96935 2. PICC tip confirmation with spot radiograph and is in the superior vena cava Medications: 1 percent lidocaine Total Fluoro time: 9 seconds Radiation: 1.48 MGy EBL: 2 cc HISTORY: Infection requiring long-term IV antibiotics TECHNIQUE: Following informed consent and procedure time-out, the patient was placed supine on the interventional table and the right arm prepped and draped in the usual sterile fashion. Ultrasound showed a patent and compressible right basilic vein. After the skin was anesthetized with lidocaine, the basilic vein was accessed with micro micropuncture technique using ultrasound guidance. A guidewire was then advanced under fluoroscopic guidance into the superior vena cava. An image documenting ultrasound guidance for vascular access was permanently saved. The length of the single-lumen 4 Spanish PICC was trimmed to 37 centimeters and advanced through a peel-away sheath. The PICC was position with tip of PICC confirm a spot radiograph the superior vena cava. The PICC was secured to the patient's skin. The PICC was flushed. A biopatch and sterile dressing was applied. IMPRESSION: Placement of a single-lumen 4 Spanish PICC trimmed to 37 centimeters via right basilic vein. The tip of the PICC is confirmed with spot radiograph and is in the superior vena cava.
== END 2018-05-04 17:20 | disposition home or self-care (01) | DRG 638 ==
LOC: H.ER 12:45 → H.ERHOLD 20:25 → H.MEDSURG1 23:06
PROVIDERS: ADMIT Internal Medicine; ATTEND Internal Medicine
PROC: 02HV33Z Insertion of Infusion Device into Superior Vena Cava, Percutaneous Approach (ICD-10-PCS; principal; 2018-05-04)
DX: E11.69 Type 2 diabetes mellitus with other specified complication (principal); E87.1 Hypo-osmolality and hyponatremia; M86.171 Other acute osteomyelitis, right ankle and foot; E11.40 Type 2 diabetes mellitus with diabetic neuropathy, unspecified; I10 Essential (primary) hypertension; Z89.411 Acquired absence of right great toe; E11.65 Type 2 diabetes mellitus with hyperglycemia; E11.621 Type 2 diabetes mellitus with foot ulcer; L97.519 Non-pressure chronic ulcer of other part of right foot with unspecified severity; Z91.14 Patient's other noncompliance with medication regimen; Z91.11 Patient's noncompliance with dietary regimen; Z79.4 Long term (current) use of insulin; Z87.891 Personal history of nicotine dependence; L03.031 Cellulitis of right toe; E11.51 Type 2 diabetes mellitus with diabetic peripheral angiopathy without gangrene

== ENCOUNTER 2018-06-14 14:23 | Emergency (ER) | payer SELFPAY ==
[2018-06-14 14:23] VITALS: BMI 27.9
--- NOTE | 2018-06-14 15:34 | ED PDOC ---
HPI: Hypertension/Hypotension Time Seen by Provider: 06/14/18 15:03 Chief Complaint (Nursing): High Blood Pressure Chief Complaint (Provider): High Blood Pressure History Per: Patient Associated Symptoms: denies: Chest Pain, Dizziness, Headache Additional Complaint(s): Fadi Ramirez is a 47 year old male with a past medical history of HTN, hypercholesterolemia, and diabetes, who was referred to come to the emergency department by his podiatry clinic for high blood pressure. Contrary to triage note, patient does not complain of any dizziness. Last time patient was on Lisinopril doctor decreased his dose from 10 mg to 5 mg and instructed him to stop for x1 week because of low blood pressure. Patient states he was going to restart the medication today but did not take any. He declines feeling any chest pain, headache, shortness of breath, or paresthesia. PMD: Campbell Peng Past Medical History Reviewed: Historical Data, Nursing Documentation, Vital Signs Vital Signs: Last Vital Signs Temp 97.6 F 06/14/18 14:27 Pulse 90 06/14/18 14:27 Resp 16 06/14/18 14:27 BP 180/111 H 06/14/18 14:27 Pulse Ox 100 06/14/18 14:27 - Medical History PMH: Diabetes, HTN, Hypercholesterolemia Denies: Chronic Kidney Disease - Surgical History Surgical History: No Surg Hx - Family History Family History: States: Diabetes, Hypertension - Immunization History Hx Tetanus Toxoid Vaccination: Yes (8 months ago) - Home Medications Home Medications: Ambulatory Orders Medication Instructions Recorded Multivitamin,Therapeutic [Oncovite] 1 tab PO DAILY 30 Days tab 05/01/18 Cefepime 1gm in NS 100ml [Maxipime 1 gm IVPB DAILY #42 bag 05/03/18 1gm] Vancomycin/0.9 % Sod Chloride 1.25 gm IV DAILY #42 plast..bag 05/03/18 [Vanco 1.25 gm/250 ml-0.9% NaCl] Aspirin [Aspirin Chewable] 81 mg PO DAILY #30 ctb 05/04/18 Atorvastatin [Lipitor] 20 mg PO DAILY #30 tab 05/04/18 Insulin Glargine, Recombina 20 unit SQ HS #2 vial 05/04/18 [Lantus] Lisinopril [Zestril] 20 mg PO DAILY #30 tab 05/04/18 MetFORMIN [glucoPHAGE] 1,000 mg PO BID #60 tab 05/04/18 Metoprolol Succinate XL [Toprol XL] 50 mg PO DAILY #30 tab 05/04/18 - Allergies Allergies/Adverse Reactions: Allergies Allergy/AdvReac Type Severity Reaction Status Date / Time No Known Allergies Allergy Verified 06/14/18 14:29 Review of Systems ROS Statement: Except As Marked, All Systems Reviewed And Found Negative Cardiovascular: Negative for: Chest Pain Respiratory: Negative for: Shortness of Breath Neurological: Negative for: Headache, Other (paresthesia) Physical Exam - Reviewed Nursing Documentation Reviewed: Yes Vital Signs Reviewed: Yes - Physical Exam Appears: Positive for: Non-toxic, No Acute Distress Head Exam: Positive for: ATRAUMATIC, NORMOCEPHALIC Skin: Positive for: Normal Color, Warm, Dry Eye Exam: Positive for: Normal appearance, EOMI, PERRL Neck: Positive for: Normal, Painless ROM, Supple Cardiovascular/Chest: Positive for: Regular Rate, Rhythm. Negative for: Murmur Respiratory: Positive for: Normal Breath Sounds. Negative for: Respiratory Distress Gastrointestinal/Abdominal: Positive for: Normal Exam, Soft. Negative for: Tenderness Back: Positive for: Normal Inspection. Negative for: L CVA Tenderness, R CVA Tenderness, Vertebral Tenderness Extremity: Positive for: Normal ROM. Negative for: Pedal Edema, Deformity Neurologic/Psych: Positive for: Alert, Oriented (x3). Negative for: Motor/Sensory Deficits - Laboratory Results Result Diagrams: 06/14/18 15:49 06/14/18 16:40 - ECG O2 Sat by Pulse Oximetry: 100 (RA) Pulse Ox Interpretation: Normal Medical Decision Making Medical Decision Making: Initial Time: 15:24 Initial Plan: --EKG --CMP --ED urine dipstick --CBC with differential --Zestril 10 mg PO --Urinalysis Scribe Attestation: Documented by Sami Montaño, acting as a scribe for Sade Munoz MD. Provider Scribe Attestation: All medical record entries made by the Scribe were at my direction and pe rsonally dictated by me. I have reviewed the chart and agree that the record accurately reflects my personal performance of the history, physical exam, medical decision making, and the department course for this patient. I have also personally directed, reviewed, and agree with the discharge instructions and disposition. Disposition - Clinical Impression Clinical Impression: HTN (hypertension) - Disposition Referrals: [facility] [Outside] Disposition: Transfer of Care Disposition Time: 19:00 Condition: STABLE Additional Instructions: FADI RAMIREZ, thank you for letting us take care of you today. Your provider was Nader Shaw MD and you were treated for POSS HBP. The emergency medical care you received today was directed at your acute symptoms. If you were prescribed any medication, please fill it and take as directed. It may take several days for your symptoms to resolve. Return to the Emergency Department if your symptoms worsen, do not improve, or if you have any other problems. Please contact your doctor or call one of the physicians/clinics you have been referred to that are listed on the Patient Visit Information form that is included in your discharge packet. Bring any paperwork you were given at discharge with you along with any medications you are taking to your follow up visit. Our treatment cannot replace ongoing medical care by a primary care provider outside of the emergency department. Thank you for allowing the [facility] team to be part of your care today. If you had an X-Ray or CT scan: A Radiologist will review the ED reading if any change in treatment is needed we will contact you. If you had a blood, urine, or wound culture: It will take several days for the results, if any change in treatment is needed we will contact you. If you had an STI test: It will take 48 hours for the results. Please call after 1 week if you have not heard back. Instructions: High Blood Pressure in Adults Print Language: MONTSERRATIAN Patient Signed Over To: Nader Shaw Handoff Comments: Pending reevaluation and disposition.
[2018-06-14 15:58] LABS: BASO % 0.6 % (0.0-2.0); EOS # 0.1 K/uL (0.0-0.7); HEMOGLOBIN 11.1 g/dL (12.0-18.0); LYMPH # 1.5 K/uL (1.0-4.3); LYMPH % 47.7 % (20.0-40.0); MEAN CELL VOLUME 88.3 fl (80.0-94.0); MEAN CORPUSCULAR HEMOGLOBIN 30.5 pg (27.0-31.0); MEAN CORPUSCULAR HGB CONC 34.5 g/dL (33.0-37.0); MEAN PLATELET VOLUME 8.9 fl (7.2-11.7); MONO # 0.4 K/uL (0.0-0.8); MONO % 11.3 % (0.0-10.0); NEUT # 1.2 K/uL (1.8-7.0); NEUT % 38.4 % (50.0-75.0); NRBC % 0.1 % (0.0-0.0); RBC 3.63 Mil/uL (4.40-5.90); RED CELL DISTRIBUTION WIDTH 12.1 % (11.5-14.5); WHITE BLOOD COUNT 3.1 K/uL (4.8-10.8)
[2018-06-14 16:12] LABS: URINE BILIRUBIN NEGATIVE (NEGATIVE); URINE BLOOD SMALL (NEGATIVE); URINE CLARITY CLEAR (Clear); URINE COLOR STRAW (YELLOW); URINE GLUCOSE (UA) >=500 mg/dL (Normal); URINE LEUKOCYTE ESTERASE NEG Leu/uL (Negative); URINE PROTEIN 100 mg/dL (NEGATIVE); URINE UROBILINOGEN 0.2-1.0 mg/dL (0.2-1.0)
[2018-06-14 16:20] LABS: ALBUMIN 3.9 g/dL (3.5-5.0); ALT/SGPT 54 U/L (21-72); AST/SGOT 49 U/L (17-59); BLOOD UREA NITROGEN 43 mg/dl (9-20); CALCIUM 9.8 mg/dL (8.4-10.2); GFR NON-AFRICAN AMERICAN > 60
[2018-06-14] MEDS ORDERED: Sod Polystyrene Sulf 15 gm/60 ml Susp PO STA (17:57)
[2018-06-14] MEDS ORDERED: Sodium Chloride 0.9% 1,000 ML IV STA (17:58)
[2018-06-14] MEDS ORDERED: Sod Polystyrene Sulf 15 gm/60 ml Susp ONE (18:09)
--- NOTE | 2018-06-14 19:45 | ED PDOC ---
- Laboratory Results Result Diagrams: 06/14/18 15:49 06/14/18 16:40 - ECG O2 Sat by Pulse Oximetry: 100 (RA) Pulse Ox Interpretation: Normal - Progress Re-evaluation Time: 20:36 Condition: Re-examined, Improved Medical Decision Making Medical Decision Making: Time: 19:00 Patient care was transferred from Dr. Munoz to Dr. Shaw pending reevaluation . - Scribe Attestation: Documented by Sami Montaño, acting as a scribe for Nader Abreu MD Provider Scribe Attestation: All medical record entries made by the Scribe were at my direction and personally dictated by me. I have reviewed the chart and agree that the record accurately reflects my personal performance of the history, physical exam, medical decision making, and the department course for this patient. I have also personally directed, reviewed, and agree with the discharge instructions and disposition. Disposition - Clinical Impression Clinical Impression: HTN (hypertension) - POA Present On Arrival: None - Disposition Referrals: [facility] [Outside] Disposition: Routine/Home Disposition Time: 20:36 Condition: GOOD Additional Instructions: JOURDAN AGUDELO, thank you for letting us take care of you today. Your provider was Nader Shaw MD and you were treated for POSS HBP. The emergency medical care you received today was directed at your acute symptoms. If you were prescribed any medication, please fill it and take as directed. It may take several days for your symptoms to resolve. Return to the Emergency Department if your symptoms worsen, do not improve, or if you have any other problems. Please contact your doctor or call one of the physicians/clinics you have been referred to that are listed on the Patient Visit Information form that is included in your discharge packet. Bring any paperwork you were given at discharge with you along with any medications you are taking to your follow up visit. Our treatment cannot replace ongoing medical care by a primary care provider outside of the emergency department. Thank you for allowing the [facility] team to be part of your care today. If you had an X-Ray or CT scan: A Radiologist will review the ED reading if any change in treatment is needed we will contact you. If you had a blood, urine, or wound culture: It will take several days for the results, if any change in treatment is needed we will contact you. If you had an STI test: It will take 48 hours for the results. Please call after 1 week if you have not heard back. Instructions: High Blood Pressure in Adults Print Language: HONDURAN
[2018-06-14 20:18] VITALS: BP 117/80; PULSE 82; RESP 14; TEMP 97.8
[2018-06-14 20:37] VITALS: O2SAT 100
--- NOTE | 2018-06-15 07:16 | CARD ---
APPROVED REPORT Date of service: 06/14/2018 EKG Measurement Heart [id number] <Conclusion> Normal sinus rhythm Left ventricular hypertrophy Abnormal ECG
== END 2018-06-14 20:46 | disposition home or self-care (01) ==
LOC: H.ER 14:23
DX: I10 Essential (primary) hypertension (principal); E11.9 Type 2 diabetes mellitus without complications; E78.00 Pure hypercholesterolemia, unspecified; Z79.4 Long term (current) use of insulin; Z79.82 Long term (current) use of aspirin

== ENCOUNTER 2018-08-18 23:46 | Emergency (ER) | payer SELFPAY ==
[2018-08-18 23:46] VITALS: BMI 27.9
[2018-08-18 23:55] VITALS: RESP 18; O2SAT 99
[2018-08-19] MEDS ORDERED: Sodium Chloride 0.9% 1,000 ML IV STA (01:09)
--- NOTE | 2018-08-19 01:11 | ED PDOC ---
HPI: Abdomen Time Seen by Provider: 08/19/18 00:38 Chief Complaint (Nursing): Abdominal Pain Chief Complaint (Provider): abdominal pain History Per: Patient History/Exam Limitations: no limitations Onset/Duration Of Symptoms: Days (4) Current Symptoms Are (Timing): Still Present Location Of Pain/Discomfort: Epigastric Associated Symptoms: Nausea, Vomiting Additional Complaint(s): 47 y/o male presents for evaluation of abdominal pain x 4 days. Vomiting began today. Denies fever, chest pain, shortness of breath, palpitations, changes in bowel movements, urinary symptoms, recent travel. Past Medical History Reviewed: Historical Data, Nursing Documentation, Vital Signs Vital Signs: Last Vital Signs Temp 98.4 F 08/18/18 23:52 Pulse 92 H 08/18/18 23:52 Resp 18 08/18/18 23:52 BP 117/79 08/18/18 23:52 Pulse Ox 99 08/18/18 23:52 - Medical History PMH: Diabetes, HTN, Hypercholesterolemia Denies: Chronic Kidney Disease - Family History Family History: States: Unknown Family Hx, Diabetes, Hypertension - Immunization History Hx Tetanus Toxoid Vaccination: Yes (8 months ago) - Home Medications Home Medications: Ambulatory Orders Medication Instructions Recorded Multivitamin,Therapeutic [Oncovite] 1 tab PO DAILY 30 Days tab 05/01/18 Cefepime 1gm in NS 100ml [Maxipime 1 gm IVPB DAILY #42 bag 05/03/18 1gm] Vancomycin/0.9 % Sod Chloride 1.25 gm IV DAILY #42 plast..bag 05/03/18 [Vanco 1.25 gm/250 ml-0.9% NaCl] Aspirin [Aspirin Chewable] 81 mg PO DAILY #30 ctb 05/04/18 Atorvastatin [Lipitor] 20 mg PO DAILY #30 tab 05/04/18 Insulin Glargine, Recombina 20 unit SQ HS #2 vial 05/04/18 [Lantus] Lisinopril [Zestril] 20 mg PO DAILY #30 tab 05/04/18 MetFORMIN [glucoPHAGE] 1,000 mg PO BID #60 tab 05/04/18 Metoprolol Succinate XL [Toprol XL] 50 mg PO DAILY #30 tab 05/04/18 Famotidine [Pepcid] 20 mg PO BID #30 tab 08/19/18 Ondansetron [Zofran] 4 mg PO Q8H PRN #10 tab 08/19/18 - Allergies Allergies/Adverse Reactions: Allergies Allergy/AdvReac Type Severity Reaction Status Date / Time No Known Allergies Allergy Verified 08/18/18 23:52 Review of Systems ROS Statement: Except As Marked, All Systems Reviewed And Found Negative Gastrointestinal: Positive for: Nausea, Vomiting, Abdominal Pain Physical Exam - Reviewed Nursing Documentation Reviewed: Yes Vital Signs Reviewed: Yes - Physical Exam Appears: Positive for: Well, Non-toxic, No Acute Distress Head Exam: Positive for: ATRAUMATIC, NORMAL INSPECTION, NORMOCEPHALIC Skin: Positive for: Normal Color Eye Exam: Positive for: Normal appearance ENT: Positive for: Normal ENT Inspection Cardiovascular/Chest: Positive for: Regular Rate, Rhythm Respiratory: Positive for: Normal Breath Sounds Gastrointestinal/Abdominal: Positive for: Bowel Sounds, Soft, Tenderness (epigastric) Back: Positive for: Normal Inspection Extremity: Positive for: Normal ROM Neurologic/Psych: Positive for: Alert, Oriented (x3) - Laboratory Results Result Diagrams: 08/19/18 02:17 08/19/18 02:17 - ECG O2 Sat by Pulse Oximetry: 99 - Progress ED Course And Treament: -cbc -cmp -lipase -urinalysis -IV NS bolus -IV zofran -IV pepcid Ultrasound of the right upper quadrant. Indication: Abdominal pain and vomiting. Comparison: 06/17/2013. Findings: Real-time ultrasound images were obtained. Hepatomegaly measuring 18.8 cm. Increased hepatic echogenicity suggestive of hepatic steatosis. Mild diffuse thickening of the gallbladder measuring 3.7 mm. No evidence of cholelithiasis. Limited evaluation of the pancreas secondary to gaseous bowel distention. Nondilated common bile duct measuring 5.7 mm. Unremarkable right kidney measuring 10.6x6.1x6.2 cm. Impression: Hepatomegaly with hepatic steatosis. Mild diffuse thickening of the gallbladder, nonspecific. This was not present prior exam. No evidence of cholelithiasis Patient states he is feeling better on re-eval Tolerating PO Patient educated on findings, discharged with rx Pepcid, Zofran Advised diet modification Follow up PMD within 2-3 days Return precautions given Disposition - Clinical Impression Clinical Impression: Abdominal pain - Patient ED Disposition Is Patient to be Admitted: No Counseled Patient/Family Regarding: Studies Performed, Diagnosis, Need For Followup, Rx Given - Disposition Referrals: [facility] [Outside] Disposition: Routine/Home Disposition Time: 05:57 Condition: IMPROVED Prescriptions: Famotidine [Pepcid] 20 mg PO BID #30 tab Ondansetron [Zofran] 4 mg PO Q8H PRN #10 tab PRN Reason: Nausea/Vomiting Instructions: Acute Abdomen (Belly Pain) Print Language: [place]IZ[place]
[2018-08-19 02:31] LABS: BASO % 0.6 % (0.0-2.0); EOS % 0.6 % (0.0-4.0); HEMOGLOBIN 13.2 g/dL (12.0-18.0); LYMPH # 1.1 K/uL (1.0-4.3); LYMPH % 33.7 % (20.0-40.0); MEAN CELL VOLUME 89.1 fl (80.0-94.0); MEAN CORPUSCULAR HGB CONC 33.6 g/dL (33.0-37.0); MEAN PLATELET VOLUME 8.6 fl (7.2-11.7); MONO # 0.3 K/uL (0.0-0.8); MONO % 8.5 % (0.0-10.0); NEUT # 1.8 K/uL (1.8-7.0); NEUT % 56.6 % (50.0-75.0); NRBC % 0.1 % (0.0-0.0); RBC 4.39 Mil/uL (4.40-5.90); WHITE BLOOD COUNT 3.3 K/uL (4.8-10.8)
[2018-08-19 02:34] LABS: SQUAMOUS EPITHIAL < 1 /hpf (0-5); URINE BILIRUBIN NEGATIVE (NEGATIVE); URINE BLOOD MODERATE (NEGATIVE); URINE CLARITY CLOUDY (Clear); URINE COLOR AMBER (YELLOW); URINE GLUCOSE (UA) >=500 mg/dL (NEGATIVE); URINE HYALINE CAST >20 /hpf (0-2); URINE LEUKOCYTE ESTERASE NEG Leu/uL (Negative); URINE PROTEIN >=500 mg/dL (NEGATIVE)
[2018-08-19 02:44] LABS: ALB/GLOB RATIO 0.9 (1.0-2.1); ALBUMIN 3.4 g/dL (3.5-5.0); ALT/SGPT 149 U/L (21-72); AST/SGOT 259 U/L (17-59); BLOOD UREA NITROGEN 20 mg/dl (9-20); CALCIUM 8.5 mg/dL (8.4-10.2); GFR NON-AFRICAN AMERICAN 59; LIPASE 152 U/L (23-300)
[2018-08-19 06:15] VITALS: BP 121/80; PULSE 78; TEMP 98.1
--- NOTE | 2018-08-19 18:23 | US ---
Date of service: 08/19/2018 HISTORY: Abdominal the pain, vomiting COMPARISON: Comparison made with prior right upper quadrant ultrasound 05/18/2013 TECHNIQUE: Sonographic evaluation of the right upper quadrant of the abdomen. FINDINGS: LIVER: Measures nearly 19 cm in CC dimension.. Increased echogenicity consistent with fatty infiltration however other infiltrative hepatocellular disease process not excluded.. No mass. No intrahepatic bile duct dilatation. GALLBLADDER: No evidence of intraluminal gallbladder calculi. Gallbladder wall is slightly thickened possibly due to incomplete distention. No pericholecystic fluid collections or sonographic Moody sign COMMON BILE DUCT: Measures 5.7 mm. No stones. No dilatation. PANCREAS: Not visualized due to body habitus and bowel gas. RIGHT KIDNEY: Measures 12.7 x 6.1 x 6.2 cm in length. Normal echogenicity. No calculus, mass, or hydronephrosis. AORTA: No aneurysmal dilatation. IVC: IVC not visualized due to body habitus and bowel gas OTHER FINDINGS: None . IMPRESSION: Hepatomegaly with fatty infiltration however other infiltrative hepatocellular disease process not excluded. Gallbladder wall slightly thickened possibly due to incomplete distention. No evidence of cholelithiasis or sonographic Moody sign.
== END 2018-08-19 06:14 | disposition home or self-care (01) ==
LOC: H.ER 23:46
DX: R10.13 Epigastric pain (principal); E11.9 Type 2 diabetes mellitus without complications; E78.00 Pure hypercholesterolemia, unspecified; I10 Essential (primary) hypertension; Z79.4 Long term (current) use of insulin
CPT/HCPCS: 76705; 80053; 81003; 83690; 85025; 96374; 99283; J2405; J7030

== ENCOUNTER 2018-10-18 11:49 | Emergency (ER) | payer MEDICAID, OTHER, SELFPAY ==
[2018-10-18 11:50] VITALS: BMI 27.9
[2018-10-18 12:03] VITALS: TEMP 97.4
[2018-10-18 12:29] VITALS: RESP 20; O2SAT 100
--- NOTE | 2018-10-18 13:05 | ED PDOC ---
HPI: Back Time Seen by Provider: 10/18/18 12:14 Chief Complaint (Nursing): Back Pain Chief Complaint (Provider): Back Pain History Per: Control Center Operator ([id number]) Current Symptoms Are (Timing): Still Present Additional Complaint(s): Fadi Ramirez is a 47 year old male with a past medical history, who presents to the emergency department complaining of back pain. He states that x2 weeks ago, he lifted a heavy trash can and felt pain on his back that is now radiating to his leg. Pt denies trauma. He denies having any allergy to medications. PMD: no provider Past Medical History Reviewed: Historical Data, Nursing Documentation, Vital Signs Vital Signs: Last Vital Signs Temp 97.4 F L 10/18/18 12:02 Pulse 85 10/18/18 12:29 Resp 20 10/18/18 12:29 BP 185/106 H 10/18/18 12:29 Pulse Ox 100 10/18/18 12:29 - Medical History PMH: Diabetes, HTN, Hypercholesterolemia Denies: Chronic Kidney Disease - Surgical History Surgical History: No Surg Hx - Family History Family History: States: Unknown Family Hx, Diabetes, Hypertension - Immunization History Hx Tetanus Toxoid Vaccination: Yes (8 months ago) - Home Medications Home Medications: Ambulatory Orders Medication Instructions Recorded Multivitamin,Therapeutic [Oncovite] 1 tab PO DAILY 30 Days tab 05/01/18 Cefepime 1gm in NS 100ml [Maxipime 1 gm IVPB DAILY #42 bag 05/03/18 1gm] Vancomycin/0.9 % Sod Chloride 1.25 gm IV DAILY #42 plast..bag 05/03/18 [Vanco 1.25 gm/250 ml-0.9% NaCl] Aspirin [Aspirin Chewable] 81 mg PO DAILY #30 ctb 05/04/18 Atorvastatin [Lipitor] 20 mg PO DAILY #30 tab 05/04/18 Insulin Glargine, Recombina 20 unit SQ HS #2 vial 05/04/18 [Lantus] Lisinopril [Zestril] 20 mg PO DAILY #30 tab 05/04/18 MetFORMIN [glucoPHAGE] 1,000 mg PO BID #60 tab 05/04/18 Metoprolol Succinate XL [Toprol XL] 50 mg PO DAILY #30 tab 05/04/18 Famotidine [Pepcid] 20 mg PO BID #30 tab 08/19/18 Ondansetron [Zofran] 4 mg PO Q8H PRN #10 tab 08/19/18 Cyclobenzaprine [Flexeril] 10 mg PO TID #27 tab 10/18/18 Diclofenac Potassium 50 mg PO BID #20 tablet 10/18/18 - Allergies Allergies/Adverse Reactions: Allergies Allergy/AdvReac Type Severity Reaction Status Date / Time No Known Allergies Allergy Verified 10/18/18 12:02 Review of Systems ROS Statement: Except As Marked, All Systems Reviewed And Found Negative Musculoskeletal: Positive for: Back Pain, Leg Pain (left side ) Physical Exam - Reviewed Nursing Documentation Reviewed: Yes Vital Signs Reviewed: Yes - Physical Exam Appears: Positive for: Non-toxic, No Acute Distress Head Exam: Positive for: ATRAUMATIC, NORMOCEPHALIC Cardiovascular/Chest: Positive for: Regular Rate, Rhythm. Negative for: Murmur Respiratory: Positive for: Normal Breath Sounds. Negative for: Respiratory Distress Back: Positive for: Muscle Spasm (paraspinal muscle spasm on the left side L3- L5), Other (mild tenderness to palpation on paraspinal left sided). Negative for: Vertebral Tenderness Extremity: Positive for: Other (straigt leg raise negative at 30 degrees) Neurologic/Psych: Positive for: Gait (patient uses a cane) - ECG O2 Sat by Pulse Oximetry: 100 (RA) Pulse Ox Interpretation: Normal Medical Decision Making Medical Decision Making: Time: 1300 Plan: --Tylenol 650 mg PO --Flexeril 10 mg PO --Toradol 60 mg IM [id number] Patient states that he has Hypertension and takes Metoprolol 50 mg PO but denies taking it today. Will give him a dose today. --Metoprolol 50 mg PO --The patient's back pain appears musculoskeletal in nature, increases with movement, decreases with remaining still, with normal neuro exam, intact sensation, no fever or history of IVDA to suggest spinal abscess, no rash, no UTI symptoms, appears safe and appropriate for discharge and outpatient f/u. Explained to the patient that further work up/evaluation might be needed in outpatient setting, including, but not limited to MRI, but not indicated at this time in the ED with his current clinical exam and history. Scribe Attestation: Documented by Sami Montaño, acting as a scribe for Aldo Loza PA-C. Provider Scribe Attestation: All medical record entries made by the Scribe were at my direction and personally dictated by me. I have reviewed the chart and agree that the record accurately reflects my personal performance of the history, physical exam, medical decision making, and the department course for this patient. I have also personally directed, reviewed, and agree with the discharge instructions and disposition. Disposition - Clinical Impression Clinical Impression: Sciatic nerve pain - Patient ED Disposition Is Patient to be Admitted: No Doctor Will See Patient In The: Office Counseled Patient/Family Regarding: Diagnosis, Need For Followup, Rx Given - Disposition Referrals: [facility] [place] [Outside] [facility] [Outside] Disposition: Routine/Home Disposition Time: 13:41 Condition: STABLE Prescriptions: Cyclobenzaprine [Flexeril] 10 mg PO TID #27 tab Diclofenac Potassium 50 mg PO BID #20 tablet Instructions: Sciatica, Sciatica (DC), Sciatica Exercises Forms: [employer] (Malay), [employer] (Kyrgyz) Print Language: MAORI
[2018-10-18] MEDS: Metoprolol Succinate 50 mg XL Tab PO STA (13:51)
[2018-10-18 13:52] VITALS: BP 171/108; PULSE 79
== END 2018-10-18 13:55 | disposition home or self-care (01) ==
LOC: H.ER 11:49
DX: M54.30 Sciatica, unspecified side (principal)
CPT/HCPCS: 96372; 99283; J1885